=== PATIENT | female | born 1960 | race Caucasian/White ===

== ENCOUNTER → 2016-08-04 | Outpatient (CLI) | payer BC ==
[~2016-08-04] MED LIST: IBUP-103 PO
== END | disposition home or self-care (01) ==
LOC: C.RDSM 16:00
PROVIDERS: ATTEND Physical Medicine & Rehabilitation Sports Medicine
DX: M25.562 Pain in left knee (principal)

== ENCOUNTER → 2016-08-11 | Outpatient (CLI) | payer BC ==
--- NOTE | 2016-08-11 11:34 | DIAGNOSTIC IMAGING REPORT ---
MRI OF THE LEFT KNEE CLINICAL HISTORY: Left knee pain. COMPARISON STUDY: Radiograph of left knee dated 08/04/2016. TECHNIQUE: MRI of the left knee was performed utilizing proton density, T1, and T2-weighted sequences in the axial, sagittal, coronal planes. IV contrast was not administered for this examination. The examination is degraded by motion artifact. FINDINGS: Menisci: There is degenerative tearing seen involving the body and posterior horn of the medial meniscus. The body of the meniscus appears slightly truncated. No flipped fragment is clearly seen. The lateral meniscus appears intact. Ligaments: The anterior and posterior cruciate ligaments are intact. There is fluid seen on both sides of the medial collateral ligament, possibly representing strain. The fibers are intact. The lateral collateral ligament complex is preserved. Extensor mechanism: The extensor mechanism is intact. Hoffa's fat pad is normal in appearance. Articular cartilage and bone: There is only mild degenerative thinning of the articular cartilage in all 3 compartments. No full thickness cartilage loss is seen. There is mild marrow edema seen peripherally within the medial tibial plateau. No fracture is identified. A small calcified fabella is incidentally noted. Joint effusion: None. Soft tissues: The musculature surrounding the knee joint is normal in bulk and signal intensity. IMPRESSION: 1. There is degenerative tearing identified in the body and posterior horn of the medial meniscus. 2. There is fluid seen on both sides of the medial collateral ligament suggesting strain. The fibers of the ligament are intact. 3. The lateral meniscus, the lateral collateral ligament complex, and the cruciate ligaments are intact. 4. Minimal degenerative cartilage loss as above. Reactive marrow edema is present within the peripheral aspect of the medial tibial plateau. Electronically signed by: Sajan Mccarty M.D. 08/11/2016 11:32 AM Dictated Date/Time: 08/11/2016 11:26 AM
== END | disposition home or self-care (01) ==
LOC: C.MRI 10:10
PROVIDERS: ATTEND Physical Medicine & Rehabilitation Sports Medicine
DX: S83.242A Other tear of medial meniscus, current injury, left knee, initial encounter (principal); X58.XXXA Exposure to other specified factors, initial encounter

== ENCOUNTER → 2016-08-13 | Outpatient (CLI) | payer BC ==
[2016-08-13 15:44] LABS: BASO % 0.1 %; BASO ABS # 0.01 K/uL (0-0.2); COMPLETE YES; EOS % 1.3 %; HEMATOCRIT 39.2 % (37-47); IG% 0.1 %; MEAN CELL VOLUME 92.2 fL (80-100); MEAN CORPUSCULAR HEMOGLOBIN 31.3 pg (25-34); MEAN CORPUSCULAR HGB CONC 33.9 g/dl (32-36); MEAN PLATELET VOLUME 9.9 fL (7.4-10.4); NEUT % 57.5 %; PLATELET COUNT 226 K/uL (130-400); RED BLOOD COUNT 4.25 M/uL (4.2-5.4); WHITE BLOOD COUNT 6.94 K/uL (4.8-10.8)
[2016-08-13 16:00] LABS: BLOOD UREA NITROGEN 25 mg/dl (7-18); BUN/CREATININE RATIO 24.5 (10-20); CALCIUM 8.9 mg/dl (8.5-10.1); CARBON DIOXIDE 29 mmol/L (21-32); CHLORIDE 104 mmol/L (98-107); GLUCOSE 96 mg/dl (70-99); POTASSIUM 3.9 mmol/L (3.5-5.1); SODIUM 141 mmol/L (136-145)
== END | disposition home or self-care (01) ==
LOC: C.LAB 14:42
PROVIDERS: ATTEND Physical Medicine & Rehabilitation Sports Medicine
DX: Z01.818 Encounter for other preprocedural examination (principal)

== ENCOUNTER → 2016-08-14 | Day surgery (SDC) | payer BC ==
[2016-08-13 13:33] VITALS: Ht 167.6 cm; Wt 77.3 kg
[~2016-08-14] VITALS: Ht 167.6 cm; Wt 77.3 kg
[~2016-08-14] MED LIST changes: +ATROPINE SULFATE 0.1 MG/ML 5ML SYR IV PRN; +BUPIVACAINE/EPINEPHRINE 0.5% MPF 1:200,000 30 ML VIAL ONE; +CEFAZOLIN 1000MG/55 ML D5W IV SCH; +CEFAZOLIN 2000 MG/60 ML D5W 60 ML IV SCH; +DEXAMETHASONE SOD INJ 4 MG/ML VIAL IV PRN; +DEXAMETHASONE SOD INJ 4 MG/ML VIAL ONE; +EpHEDrine SULFATE INJ 50 MG/ML AMP IV PRN; +FENTANYL CITRATE INJ 50 MCG/1 ML 2 ML VIAL ONE; +HYDROCODONE/ACETAMOPHEN 5/325MG TAB PO PRN; +KETOROLAC TROMETHAMINE 30 MG/ML VIAL IV. PRN; +LABETALOL HCL IV 5 MG/ML 20ML IV PRN; +LACTATED RINGER'S 1000ML 1,000 ML IV SCH; +LIDOCAINE HCL 2% 2 ML VIAL (20MG/ML) ONE; +METOCLOPRAMIDE HCL INJ 5 MG/ML 2 ML VIAL IV PRN; +MIDAZOLAM HCL 1 MG/ML 2ML VIAL ONE; +MoRPHine SULFATE 10 MG/ML CARP/VIAL IV PRN; +MoRPHine SULFATE PF 1 MG/ML 10 ML AMP/VIAL ONE; +ONDANSETRON INJ 2 MG/ML 2 ML VIAL IV PRN; +ONDANSETRON INJ 2 MG/ML 2 ML VIAL ONE; +PHENYLEPHRINE 100MCG/ML 5ML SYR IV PRN; +PROPOFOL IV EMULSION 10 MG/ML 20 ML VIAL IV ONE; +SODIUM CHLORIDE 0.9% 1000ML 1,000 ML IV SCH
--- NOTE | 2016-08-14 12:22 | History & Physical Bridge Note ---
H&P Re-Evaluation Bridge Note: I have examined the patient, reviewed the History & Physical and in the interval since the performance of the History & Physical I have noted the following changes of clinical significance: No changes noted
--- NOTE | 2016-08-14 12:23 | Discharge Instructions ---
Discharge Instructions Visit Reason for Visit: Left Knee Medial Meniscus Tear Discharge Discharge Diagnosis / Problem: same Discharge Goals Goal(s): Decrease discomfort, Improve function Medications Stopped Medications Name(s): nsaids Restart Stopped Medication(s): use scripts as directed Activity Recommendations Activity Limitations: as noted below Lifting Limitations: until after follow-up appointment Exercise/Sports Limitations: until after follow-up appointment May Resume Sexual Activity: when tolerated Shower/Bathe: keep incision dry Driving or Machine Use: resume 1 day after discharge Weightbearing Status: Left weightbearing (as tolerated) Anesthesia . Post Anesthesia Instructions: If you have had General Anesthesia or IV Sedation: * Do not drive today. * Resume driving when surgeon permits. * Do not make important decisions or sign legal documents today. * Call surgeon for: 1. Temperature elevations greater than 101 degrees F. 2. Uncontrollable pain. 3. Excessive bleeding. 4. Persistent nausea and vomiting. 5. Medication intolerance (nausea, vomiting or rash). * For nausea and vomiting use only clear liquids such as: tea, soda, bouillon until nausea subsides, then gradually increase diet as tolerated. * If you have any concerns or questions, call your surgeon's office. If physician is unavailable and it is an emergency, call 911 or go to the nearest emergency room. . Instructions / Follow-Up Instructions / Follow-Up The following are instructions to follow after your Arthroscopic Knee Surgery. ACTIVITY RECOMMENDATIONS: * Minimize activity until your first visit after surgery. * No excessive walking, jogging, sports or laboring. * Return to activity is individualized. Most patients are able to return to every day activities within one month. * Return to sports or intensive labor usually occurs at 2-3 months. * Driving is not permitted until at least your first postoperative visit at a minimum. Please ask your doctor when it is safe to resume driving. If you have an automatic vehicle and your left leg has been operated on, then you may begin driving as soon as you are comfortable and can drive safely. SCHOOL/WORK RECOMMENDATIONS: * You may return to sedentary work or school when you are feeling more comfortable. This is usually 3-7 days after surgery. * Expect increased discomfort with increased activity. Continue to elevate and ice the leg as much as possible. MEDICATIONS: * You will have a prescription for pain medication and an anti-inflammatory medication after surgery. * Use the pain medication for severe pain and the anti-inflammatory for less severe pain. Once the pain medication has run out, try to use the anti-inflammatory medication. If this is not effective, contact the office for assistance. * The pain medication may cause nausea, constipation and drowsiness. You should see how they affect you before driving or similar activity. * The anti-inflammatory medication may cause stomach upset and bleeding. If this occurs let your doctor know immediately . * Take a stool softener like Colace or a laxative like Senokot to prevent constipation. DIET: * Resume previous diet. SPECIAL CARE: ICE: You have the option of an ice cooler, gel packs or ice bags. * If you have an ice cooler, refer to the instructions for that device. The ice cooler may be used continuously. * If you do not have an ice cooler, you will need to use ice bags or gel packs. Do not apply ice directly to the skin. Use a thin dressing or kira shirt between the skin and ice bag. Apply ice for 20-30 minutes and repeat every 2-4 hours. This is especially important for the first 7-10 days after surgery. Once the pain improves, use ice as needed. ELEVATION: * Keep your leg elevated at or above the level of your heart as much as possible. * Expect some increased discomfort and swelling if you are standing for any length of time. * When lying down, avoid placing anything under your knee. Rather, prop your leg up by placing several pillows under your heel or calf. DRESSING: * Your dressing will be changed at your first therapy appointment approximately 4-5 days after surgery. Band-aids, tape strips or gauze may be applied. You may then change your dressing daily. * Reapply dressing followed by the Quique wrap or Tubi-brick grader stockinet and EBIce cooling pad (if chosen). * Always wash your hands prior to touching the incision area. * Once the stitches are removed, you may leave the wound open to air or cover with an Quique wrap or Tubi-brick grader stockinet. * If you have been given a white elastic stocking (DENNIS hose), wear as much as possible for the first 1-3 weeks depending on swelling. * Expect some bloody drainage for the first few days after surgery. * Leave the tape strips, if present, in place for 5-7 days. * Band-aids and gauze may be changed daily. CRUTCHES: * You will need to use crutches after surgery. * You may gradually progress to full weight bearing as tolerated and wean off the crutches unless otherwise advised. * Your therapist can provide assistance weaning off crutches. * Patients who have a microfracture done may need to be toe-touch weight- bearing for 4-6 weeks. BATHING: * You may shower or sponge-bathe immediately after surgery. * The dressing will need to be covered with a plastic bag or plastic wrap until the dressing is changed on the fourth or fifth day after surgery. * Once the dressing has been changed on the fourth or fifth day after surgery, you may shower and get the incision wet. * Wash with regular soap and water. * Do not bathe (submerge the incision), soak, swim or use a hot tub until the incision is completely healed over with normal skin and the doctor has given the OK to proceed. * There is no need to apply any ointments, powders or salves to your incision. * Do not apply alcohol or hydrogen peroxide directly to the incision. * Diluted peroxide (50:50 mixture with sterile saline) may be used to clean dried blood from around the incision area. BRACE: * Bracing is generally not needed after routine Arthroscopic Knee surgery. THERAPY: * You will begin therapy four or five days after surgery. * Organized therapy with the therapist is important for the first 4-6 weeks after surgery. During that time you will attend therapy 1-3 times per week. * You will also need to do daily exercises for range of motion and strength as instructed. PROBLEMS/QUESTIONS: * If you have any problems such as severe pain, numbness, tingling or high fevers or if you have any questions, please contact the office at [phone]. * It is not uncommon to have some numbness and tingling after the surgery especially if you have had a nerve block done. This should gradually improve over the first 1- 2 days. If this persists longer or worsens please contact the office. FOLLOW UP VISIT: * If not already scheduled, please call the office at to schedule a follow-up appointment for 10 days, 6 weeks and 3 months after surgery. Diet Recommendations Recommended Home Diet: resume previous diet Procedures Procedures Performed: ascopy left knee Pending Studies Studies pending at discharge: no Medical Emergencies . Who to Call and When: Medical Emergencies: If at any time you feel your situation is an emergency, please call 911 immediately. . Non-Emergent Contact Non-Emergency issues call your: Specialist Call Non-Emergent contact if: temperature is above 101.5 . . "Provider Documentation" section prepared by Christopher Alcocer.
--- NOTE | 2016-08-14 12:57 | [facility] Post Operative Brief Note ---
Immediate Operative Summary Operative Date Aug 14, 2016. Pre-Operative Diagnosis Left Knee Medial Meniscus Tear Post-Operative Diagnosis same Procedure(s) Performed Left Knee Arthroscopy, Partial Medial Meniscectomy, Chondroplasty Lateral Femoral Condyle Surgeon Dr. Yuli Alcocer Tallier Surgeon(s) Molina Adame PA-C Estimated Blood Loss trace Findings see op note Fluids (cc crystalloids) 500cc Specimens none Drains none Anesthesia LMA Complication(s) None Disposition Recovery Room / PACU
[2016-08-14] MEDS: FENTANYL CITRATE INJ 50 MCG/1 ML 2 ML VIAL IV PRN ×2 (13:15→13:25)
--- NOTE | 2016-08-14 13:24 | OPERATIVE REPORT ---
DATE OF OPERATION: 08/14/2016 SURGEON: Christopher Alcocer MD AQUATIC PHYSIOTHERAPIST: Molina Adame PA-C No resident or fellow available. PREOPERATIVE DIAGNOSIS: Medial meniscus tear. POSTOPERATIVE DIAGNOSES: 1. Medial meniscus tear. 2. Synovitis. 3. 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 OPERATIONS PERFORMED: 1. Exam under anesthesia. 2. Diagnostic arthroscopy. 3. Arthroscopic partial medial meniscectomy. 4. Arthroscopic chondroplasty of lateral femoral condyle with incidental trimming of the lateral meniscus and synovectomy anteriorly. PERIOPERATIVE SITUATION: Medically cleared female with intractable knee pain following a twisting injury. Physical exam, x-ray and MRI scan consistent with some early degenerative disease on the medial meniscus tear. At this point in time, she wants to proceed with surgical treatment, complaining of locking pain and intermittent sharp pain. DESCRIPTION OF PROCEDURE: The patient appropriately identified, site verified, consent verified, and 2 grams of Ancef confirmed as being given. The left lower extremity was examined revealing no ligamentous instability. It was then sterilely injected with 20 mL of 0.5% Marcaine with epinephrine and 5 mg of Duramorph for postop pain control. The knee was then prepped and draped in the usual routine fashion. Inframedial and infralateral portals marked and injected with 3.5 mL of 0.5% Marcaine with epinephrine. Lateral portal was utilized and then, the scope inserted and then looking medially, the portal was localized with a needle to get a good direction to the posterior condyle and the portal was made. The anterior synovectomy was completed at the end of the procedure. The lateral compartment had an articular surface lesion with some fraying of the lateral femoral condyle, approximately 0.5 x 0.75 cm area, which was debrided to a stable base. There was no exposed bone. There was a free edge fraying of the lateral meniscus, which was incidentally debrided as well as the synovitis in this area. The ACL and PCL were normal. The medial compartment had relatively healthy articular surfaces of the medial condyle and the medial tibial plateau. The medial meniscus had an extensive degenerative tear with an early root type tear, but the posterior root was intact. This was trimmed to a stable balanced contoured rim. There was an extensive horizontal cleavage into the meniscus. Once it was trimmed it fell into a cavern and the internal architecture of the meniscus was completely disrupted. This resulted in about a 50% partial medial meniscectomy of the posterior half of the meniscus. This was then trimmed to a stable balanced contoured rim with the shaver. Probing revealed no instability and no articular lesions. Some minor synovitis was removed from the patellofemoral joint. The knee was then copiously irrigated and inspected and all remaining debris removed and all instruments and fluid removed. The portals were then closed with horizontal mattress 3-0 nylon suture in simple mattress suture on the medial side and horizontal mattress on the lateral side. The wound was then dressed with Xeroform, 4 x 4 gauze, sterile Webril, ABD pads, above knee DENNIS stocking. Overall prognosis for this knee is a little guarded based on the lateral femoral articular disease. At this point in time, the patient will be weightbearing to tolerance and could be started on Lovenox tomorrow for 2 weeks and then go to aspirin 325 b.i.d. for another 2 weeks. She will be doing some plane travel and this was discussed with her in detail. She will start with Lovenox tomorrow. She will follow up with us in the office in 2 weeks for suture removal. Start PT on Wednesday. Keep dressing in place until Wednesday. I attest to the content of the Intraoperative Record and any orders documented therein. Any exceptions are noted below. WALLY
--- NOTE | 2016-08-14 13:30 | OPERATIVE REPORT ---
DATE OF OPERATION: 08/14/2016 PREOPERATIVE DIAGNOSIS: Left knee medial meniscal tear. POSTOPERATIVE DIAGNOSIS: Left knee same with chondral injury of the lateral femoral condyle. PROCEDURE: Left knee arthroscopy, partial medial meniscectomy, and chondroplasty of the lateral femoral condyle. SURGEON: Dr. Alcocer. SATELLITE MANAGER: Molina Adame PA-C. HISTORY OF PRESENT ILLNESS: This 56-year-old white female presented to the office with complaints of left knee pain that had been ongoing for a few months. Pain was worse with any physical activity. Pain was affecting her ADLs. She elected to proceed with surgical intervention after being educated about potential risks and outcomes. Preoperative x-ray and MRI were obtained. OPERATION: The patient was taken to the operating room where she was administered general anesthetic. She was prepped and draped in the usual sterile fashion. Please see Dr. Alcocer's operative report for specifics of the procedure. I was present for the entire case from initial patient positioning through final wound closure. Assistance was provided in patient positioning, arthroscopy, and final wound closure. The patient was taken to the recovery room in satisfactory condition. I attest to the content of the Intraoperative Record and any orders documented therein. Any exceptio ns are noted below.
--- NOTE | 2016-08-14 13:48 | Anesthesia Progress Nt - [facility] ---
Anesthesia Post Op Note Date & Time Aug 14, 2016 at 13:48 Vital Signs Pain Intensity: 4 Vital Signs Past 12 Hours Date Time Temp Pulse Resp B/P Pulse Ox O2 Delivery O2 Flow Rate FiO2 08/14/16 13:44 54 21 08/14/16 13:44 52 21 98 08/14/16 13:43 129/69 08/14/16 13:43 36.7 08/14/16 13:39 52 14 97 08/14/16 13:39 53 14 08/14/16 13:38 130/69 08/14/16 13:34 45 12 08/14/16 13:34 44 12 120/65 100 08/14/16 13:30 135/74 08/14/16 13:29 55 15 08/14/16 13:29 55 15 100 08/14/16 13:24 54 9 08/14/16 13:24 54 9 100 08/14/16 13:23 138/81 08/14/16 13:19 47 10 08/14/16 13:19 47 10 100 08/14/16 13:18 146/77 08/14/16 13:14 55 13 100 08/14/16 13:14 55 13 08/14/16 13:13 146/80 08/14/16 13:09 58 12 100 08/14/16 13:09 59 12 08/14/16 13:08 133/80 08/14/16 13:04 57 13 08/14/16 13:04 57 13 100 08/14/16 13:03 36.2 61 16 138/83 97 Diffusion Mask 6 08/14/16 11:52 36.2 61 16 115/62 95 Room Air Notes Mental Status: alert / awake / arousable, participated in evaluation Pt Amnestic to Procedure: Yes Nausea / Vomiting: adequately controlled Pain: adequately controlled Airway Patency, RR, SpO2: stable & adequate BP & HR: stable & adequate Hydration State: stable & adequate Anesthetic Complications: no major complications apparent
[2016-08-14 14:10] VITALS: TEMP 36.4
[2016-08-14 14:52] VITALS: BP 114/68; PULSE 56; O2SAT 98
== END | disposition home or self-care (01) ==
LOC: X.SURG 11:42
PROVIDERS: ATTEND Physical Medicine & Rehabilitation Sports Medicine
DX: M23.232 Derangement of other medial meniscus due to old tear or injury, left knee (principal); M65.9 Synovitis and tenosynovitis, unspecified

== ENCOUNTER → 2017-04-27 | Outpatient (CLI) | payer BC ==
--- NOTE | 2017-05-03 14:55 | MAMMOGRAPHY REPORT ---
THIS REPORT HAS BEEN AMENDED. BILATERAL DIGITAL SCREENING MAMMOGRAM WITH CAD: 04/27/2017 CLINICAL HISTORY: Routine screening. Patient has no complaints. TECHNIQUE: Bilateral CC and MLO views were obtained. Current study was also evaluated with a Compute r Aided Detection (CAD) system. COMPARISON: No prior exams were available for comparison. BREAST COMPOSITION: There are scattered areas of fibroglandular density in both breasts. FINDINGS: There is a lobulated 15 mm oval mass with associated ribbon-shaped biopsy marker clip in t he 6:00 left breast. Presumably this represents a previously biopsied mass which yielded benign path ology. However, comparison to prior outside exams is recommended to assess stability. A 4 mm nodula r asymmetry is seen in the medial anterior right breast on the CC view, for which comparison to prior outside exams is needed to assess stability. If the outside exams are not obtained in a timely rivas er, additional spot compression tomosynthesis views and possible ultrasound may be needed. There are scattered benign-appearing round microcalcifications in the left breast. No other suspicio us mass, architectural distortion or cluster of microcalcifications is seen. IMPRESSION: ACR BI-RADS CATEGORY 0: INCOMPLETE EVALUATION: NEED ADDITIONAL IMAGING EVALUATION The lobulated 15 mm mass with associated biopsy marker clip in the 6:00 left breast and 4 mm nodular asymmetry in the medial right breast in comparison to prior outside exams to assess stability. If th e outside mammograms and/or ultrasounds are not obtainable timely manner, additional spot compression tomosynthesis views and possible ultrasound may be needed. The patient will be called to schedule an appointment. Approximately 10% of breast cancers are not detected with mammography. A negative mammographic report should not delay biopsy if a clinically suggestive mass is present. Linh Awad M.D. ay/:05/03/2017 08:36:12 Rug Renovator: Millicent CALERO)([place]), [facility] letter sent: Need Priors 0 BI-RADS Code: ACR BI-RADS Category 0: Incomplete Evaluation: Need Additional Imaging Evaluation AMENDMENT: 05/05/2017 Linh Awad M.D. A prior outside mammogram dated 11/29/2012 from [facility] became available for review. Th e circumscribed 15 mm oval mass and associated biopsy marker clip in the left breast is stable compar ed to the 2013 mammogram as is the small 4 mm nodular asymmetry in the medial anterior right breast. No new suspicious masses, areas of distortion, calcifications or asymmetries are seen bilaterally. Overall, no significant interval change, would recommend routine screening mammography in one year. Amended BI-RADS: ACR BI-RADS Category 2: Benign letter sent: Normal 07/06
== END | disposition home or self-care (01) ==
LOC: C.MAMM 12:51
PROVIDERS: ATTEND Family Medicine
DX: Z12.31 Encounter for screening mammogram for malignant neoplasm of breast (principal); N63.42 Unspecified lump in left breast, subareolar; N64.89 Other specified disorders of breast

== ENCOUNTER 2020-12-07 16:15 | Observation (INO) ==
[2020-12-07] MEDS ORDERED: SODIUM CHLORIDE 0.9% 1000ML 2,000 ML IV ONE (17:46)
[2020-12-07 18:10] LABS: Basophils # (auto) 0.01 K/uL (0-0.2); Basophils % (auto) 0.1 %; Eosinophils # (auto) 0.02 K/uL (0-0.5); Eosinophils % (auto) 0.2 %; Hematocrit (blood only) 39.8 % (37-47); Hemoglobin 13.4 g/dL (12.0-16.0); Immature Granulocytes # (auto) 0.01 K/uL (0.00-0.02); Immature Granulocytes % (auto) 0.1 %; Lymphocytes # (auto) 1.37 K/uL (1.2-3.4); Lymphocytes % (auto) 11.4 %; Mean Corpuscular Hgb Conc 33.7 g/dL (32-36); Mean Platelet Volume 9.6 fL (7.4-10.4); Monocytes # (auto) 0.29 K/uL (0.11-0.59); Monocytes % (auto) 2.4 %; Neutrophils # (auto) 10.31 K/uL (1.4-6.5); Neutrophils % (auto) 85.8 %; Platelet Count 274 K/uL (130-400); RDW Coefficient of Variation 12.7 % (11.5-14.5); RDW Standard Deviation 43.6 fL (36.4-46.3); Red Blood Count 4.19 M/uL (4.2-5.4); White Blood Count 12.01 K/uL (4.8-10.8)
[2020-12-07 18:36] LABS: Albumin Globulin Ratio 1.1 (0.9-2); BUN Creatinine Ratio 18.8 (10-20); Bilirubin,Total 0.4 mg/dl (0.2-1); Calcium 9.4 mg/dl (8.5-10.1); Creatinine Clr Calc Pharmacy 80.9 ml/min; Est GFR (African American) 93.6 ml/min; Est GFR (Non-African American) 80.8 ml/min; Globulin 3.7 gm/dl (2.5-4.0); Total Protein 7.7 gm/dl (6.4-8.2)
[2020-12-07 18:39] LABS: Appearance Urine Cloudy (Clear); Bacteria Urine Automated Negative (Negative); Bilirubin Urine Negative (Negative); Blood Urine 3+ (Negative); Color Urine Yellow; Glucose Urine UA Negative (Negative); Ketones Urine Negative (Negative); Leukocyte Esterase Urine 1+ (Negative); Nitrite Urine Negative (Negative); Protein Urine 2+ (Negative); Specific Gravity Urine 1.018 (1.000-1.030); Urobilinogen Urine Negative (Negative)
[2020-12-07] MEDS ORDERED: OPTIRAY 320 100ml IV ONE (19:20)
--- NOTE | 2020-12-07 19:21 | Emergency Department Note ---
Impression & Plan Pyelonephritis, Nephrolithiasis, Abnormal urine, Abdominal pain ED Provider Note NAME: GERALD FERNANDEZ AGE: 60 SEX: F : 1960 ARRIVES VIA: Walk-In INFORMANT: Patient ED PROVIDER(S): Deacon Gomez DO CHIEF COMPLAINT: Abdominal pain HPI: Patient is a 60-year-old female who presents to the ER for estrada right- sided abdominal pain. Pain is then 8 out of 10. Associated with 2-3 episodes of diarrhea. She did have some nausea but that has abated. Denies any dysuria, urgency, or frequency. No other exacerbating or remitting factors. She never had this before. No previous abdominal surgeries. ROS: See above HPI for pertinent positives & negatives. A total of 10 systems reviewed and were otherwise negative. PAST MEDICAL HISTORY:See Below PAST SURGICAL HISTORY:See Below FAMILY HISTORY:See Below SOCIAL HISTORY:See Below HOME MEDICATIONS:See Below ALLERGIES:See Below VITALS:See Below PHYSICAL EXAMINATION: GENERAL: Sitting up in bed, alert, well appearing, well nourished, no distress, non-toxic EYE EXAM: normal conjunctiva. OROPHARYNX: no exudate, no erythema, lips, buccal mucosa, and tongue normal and mucous membranes are moist NECK: supple, no nuchal rigidity, no adenopathy, non-tender LUNGS: Clear to auscultation. Normal chest wall mechanics HEART: no murmurs, S1 normal and S2 normal ABDOMEN: abdomen soft, minimal tenderness in mid right abdomen, normo-active bowel sounds, no masses, no rebound or guarding. UPPER EXTREMITIES: upper extremities are grossly normal. LOWER EXTREMITIES: No pitting edema. NEURO EXAM: Normal sensorium, cranial nerves II-XII grossly intact, normal speech, no gross weakness of arms, no gross weakness of legs. MEDICAL DECISION MAKING: Patient is a 60-year-old female who presents the ER for right-sided abdominal pain. IV was established blood was obtained. Labs show leukocytosis of 12,000. No significant anemia. BMP with LFTs bilirubin and lipase was unremarkable. U A with protein, blood, leuks and budding yeast. Only 5-[address] shows pyelonephritis. Discussed with Dr. Su. Recommended Pseudomonas coverage as well as yeast coverage and admission. Patient had already been given IV Rocephin for the pseudomonal coverage cefepime was added. Patient was given fluconazole. Patient was updated bedside discussed with hospitalist admitted for further work-up after IV fluids antibiotics and morphine. Triage Nursing notes reviewed. Limited review of prior medical records performed Vital Signs: reviewed and remarkable for no significant abnormalities Differential diagnosis: Differential diagnoses includes but is not limited to gastritis, peptic ulcer disease, GERD, gallbladder disease, pancreatitis, small bowel obstruction, acute coronary syndrome, pericarditis, ischemic bowel, irritable bowel disease, irritable bowel syndrome, appendicitis, diverticulitis, malignancy, hernia, urinary tract infection, torsion, /ectopic (if female), perforation, trauma, infectious. ER treatment provided: See below Diagnostics interpreted by me: ECG: none Cardiac Monitoring: An order was placed for continuous cardiac monitoring. The monitor shows a rate of 68 with sinus rhythm. Laboratory studies: As stated above and show below. Imaging studies: CT abdomen pelvis shows pyelonephritis Consultation(s): Discussed with Dr. Su recommend admission Discussed with the hospitalist for further evaluation Procedures: none Critical Care: None Past Med/Surg History Social History Smoking Status: Never smoker Preferred Language: Mongolian Feels Safe at Home: Yes Allergies Allergies Allergy/AdvReac Type Severity Reaction Status Date / Time No Known Drug Allergies Allergy Unknown . Verified 12/07/20 18:08 Home Meds Home Medications Medication Instructions Recorded Confirmed No Known Home Medications 12/07/20 12/07/20 Results & Data (ED) Vital Signs Vital Signs - 24 hr 12/07/20 16:25 12/07/20 18:13 12/07/20 19:27 Temperature 36.1 C L Temperature Source Temporal Artery Scan Pulse Rate 63 Pulse Rate [Right Finger] 68 76 Pulse Rate from SpO2 Sensor Respiratory Rate 20 20 20 Respiratory Effort / Characteristics Non-Labored Spontaneous Non-Labored Non-Labored Spontaneous Respiratory Depth Normal Normal Normal Respiratory Pattern Regular Regular Blood Pressure 154/80 H Blood Pressure [Right Arm] 128/67 151/74 H Blood Pressure Mean 104 Blood Pressure Mean [Right Arm] 87 99 Pulse Oximetry 98 98 96 Oxygen Delivery Method Room Air Room Air Room Air Sepsis Recent Fever Within 48 Hours No Sepsis New/Unexplained Change in Mental Status No Sepsis Action Taken by Nursing No Action Required 12/07/20 21:00 12/07/20 21:31 Temperature Temperature Source Pulse Rate 87 69 Pulse Rate [Right Finger] 76 Pulse Rate from SpO2 Sensor 87 69 Respiratory Rate 24 22 Respiratory Effort / Characteristics Respiratory Depth Respiratory Pattern Blood Pressure 147/77 H 147/77 H Blood Pressure [Right Arm] 147/77 H Blood Pressure Mean 100 100 Blood Pressure Mean [Right Arm] 100 Pulse Oximetry 97 98 Oxygen Delivery Method Sepsis Recent Fever Within 48 Hours Sepsis New/Unexplained Change in Mental Status Sepsis Action Taken by Nursing Laboratory Data Result diagrams: 12/07/20 17:57 12/07/20 19:06 Lab Results 12/07/20 12/07/20 12/07/20 Range/Units 17:57 17:57 18:25 WBC 12.01 H (4.8-10.8) K/uL RBC 4.19 L (4.2-5.4) M/uL Hgb 13.4 (12.0-16.0) g/dL Hct 39.8 (37-47) % MCV 95.0 (80-100) fL MCH 32.0 (25-34) pg MCHC 33.7 (32-36) g/dL RDW Std Deviation 43.6 (36.4-46.3) fL RDW Coeff of Tiffany 12.7 (11.5-14.5) % Plt Count 274 (130-400) K/uL MPV 9.6 (7.4-10.4) fL Immature Gran % (Auto) 0.1 % Neut % (Auto) 85.8 % Lymph % (Auto) 11.4 % [place] % (Auto) 2.4 % Eos % (Auto) 0.2 % Baso % (Auto) 0.1 % Neut # (Auto) 10.31 H (1.4-6.5) K/uL Lymph # (Auto) 1.37 (1.2-3.4) K/uL [place] # (Auto) 0.29 (0.11-0.59) K/uL Eos # (Auto) 0.02 (0-0.5) K/uL Baso # (Auto) 0.01 (0-0.2) K/uL Immature Gran # (Auto) 0.01 (0.00-0.02) K/uL Sodium 138 (136-145) mmol/L Potassium (3.5-5.1) mmol/L Chloride 105 (98-107) mmol/L Carbon Dioxide 27 (21-32) mmol/L Anion Gap 6.0 (3-11) BUN 15 (7-18) mg/dl Creatinine 0.79 (0.6-1.2) mg/dl Est Cr Clr Drug Dosing 80.9 ml/min Est GFR ( Amer) 93.6 ml/min Est GFR (Non-Af Amer) 80.8 ml/min BUN/Creatinine Ratio 18.8 (10-20) Glucose 104 H (70-99) mg/dl Calcium 9.4 (8.5-10.1) mg/dl Total Bilirubin 0.4 (0.2-1) mg/dl AST (15-37) U/L ALT 36 (12-78) U/L Alkaline Phosphatase 130 H (45-117) U/L Total Protein 7.7 (6.4-8.2) gm/dl Albumin 4.0 (3.4-5.0) gm/dl Globulin 3.7 (2.5-4.0) gm/dl Albumin/Globulin Ratio 1.1 (0.9-2) Lipase 259 (73-393) U/L Urine Color Yellow Urine Appearance Cloudy A (Clear) Urine pH 5.0 (4.5-7.5) Ur Specific [place] 1.018 (1.000-1.030) Urine Protein 2+ H (Negative) Urine Glucose (UA) Negative (Negative) Urine Ketones Negative (Negative) Urine Blood 3+ H (Negative) Urine Nitrite Negative (Negative) Urine Bilirubin Negative (Negative) Urine Urobilinogen Negative (Negative) Ur Leukocyte Esterase 1+ H (Negative) Urine WBC (Auto) 1-5 (0-5) /hpf Urine RBC (Auto) 10-30 H (0-4) /hpf U Hyaline Cast (Auto) 1-5 (0-5) /lpf U Epithel Cells (Auto) 5-10 H (0-5) /lpf Urine Bacteria (Auto) Negative (Negative) Urine Yeast Budding A (None Prsent) COVID-19 Eval Order 12/07/20 12/07/20 Range/Units 19:06 21:02 WBC (4.8-10.8) K/uL RBC (4.2-5.4) M/uL Hgb (12.0-16.0) g/dL Hct (37-47) % MCV (80-100) fL MCH (25-34) pg MCHC (32-36) g/dL RDW Std Deviation (36.4-46.3) fL RDW Coeff of Tiffany (11.5-14.5) % Plt Count (130-400) K/uL MPV (7.4-10.4) fL Immature Gran % (Auto) % Neut % (Auto) % Lymph % (Auto) % [place] % (Auto) % Eos % (Auto) % Baso % (Auto) % Neut # (Auto) (1.4-6.5) K/uL Lymph # (Auto) (1.2-3.4) K/uL [place] # (Auto) (0.11-0.59) K/uL Eos # (Auto) (0-0.5) K/uL Baso # (Auto) (0-0.2) K/uL Immature Gran # (Auto) (0.00-0.02) K/uL Sodium (136-145) mmol/L Potassium 4.0 (3.5-5.1) mmol/L Chloride (98-107) mmol/L Carbon Dioxide (21-32) mmol/L Anion Gap (3-11) BUN (7-18) mg/dl Creatinine (0.6-1.2) mg/dl Est Cr Clr Drug Dosing ml/min Est GFR ( Amer) ml/min Est GFR (Non-Af Amer) ml/min BUN/Creatinine Ratio (10-20) Glucose (70-99) mg/dl Calcium (8.5-10.1) mg/dl Total Bilirubin (0.2-1) mg/dl AST 12 L (15-37) U/L ALT (12-78) U/L Alkaline Phosphatase (45-117) U/L Total Protein (6.4-8.2) gm/dl Albumin (3.4-5.0) gm/dl Globulin (2.5-4.0) gm/dl Albumin/Globulin Ratio (0.9-2) Lipase (73-393) U/L Urine Color Urine Appearance (Clear) Urine pH (4.5-7.5) Ur Specific [place] (1.000-1.030) Urine Protein (Negative) Urine Glucose (UA) (Negative) Urine Ketones (Negative) Urine Blood (Negative) Urine Nitrite (Negative) Urine Bilirubin (Negative) Urine Urobilinogen (Negative) Ur Leukocyte Esterase (Negative) Urine WBC (Auto) (0-5) /hpf Urine RBC (Auto) (0-4) /hpf U Hyaline Cast (Auto) (0-5) /lpf U Epithel Cells (Auto) (0-5) /lpf Urine Bacteria (Auto) (Negative) Urine Yeast (None Prsent) COVID-19 Eval Order Covid19 at [facility] Administered Medications Discontinued Medications Fluconazole (Fluconazole 100 Mg Tab) 200 mg PO NOW STA Stop: 12/07/20 20:09 Last Admin: 12/07/20 20:49 Dose: 200 mg Documented by: [id number] Sodium Chloride (Nss 1000ml) 2,000 mls @ 999 mls/hr IV .Q2H1M ONE Stop: 12/07/20 19:46 Last Infusion: 12/07/20 20:31 Dose: 0 mls/hr Documented by: [id number] Admin: 12/07/20 18:22 Dose: 999 mls/hr Documented by: [id number] Ceftriaxone Sodium (Rocephin) 1,000 mg in 50 mls @ 100 mls/hr IV NOW STA Stop: 12/07/20 20:15 Last Infusion: 12/07/20 20:31 Dose: 0 mls/hr Documented by: [id number] Admin: 12/07/20 19:56 Dose: 100 mls/hr Documented by: [id number] Cefepime HCl 2,000 mg/ Syringe 20 mls @ 5 mls/min IV NOW STA; Protocol Stop: 12/07/20 20:04 Last Admin: 12/07/20 20:49 Dose: 5 mls/min Documented by: [id number] Ioversol (Optiray 320 100ml) 94 ml IV ONCE ONE Stop: 12/07/20 19:21 Last Admin: 12/07/20 19:20 Dose: 94 ml Documented by: [id number] Morphine Sulfate (Morphine Sulfate 4 Mg/Ml 1 Ml Carp\Vial) 4 mg IV NOW STA Stop: 12/07/20 20:02 Last Admin: 12/07/20 20:56 Dose: 4 mg Documented by: [id number] Imaging Data Radiologist's Impression: Abdomen/Pelvis CT 12/07/20 17:[address] WITH IV CONTRAST CT DOSE: 441.77 mGy.cm HISTORY: r mid abd pain TECHNIQUE: Multiaxial CT images of the abdomen and pelvis were performed following the use of intravenous contrast. A dose lowering technique was utilized adhering to the principles of ALARA. COMPARISON STUDY: None. FINDINGS: The lung bases are clear. No pneumoperitoneum. No pneumatosis. No suspicious lytic or blastic osseous lesions. The liver is mildly enlarged. No hepatic or splenic masses. Normal gallbladder. The pancreas and adrenal glands are unremarkable. Normal left kidney. A 6 mm hypodense lesion within the lower pole of the right kidney is technically too small to characterize but statistically represents a cyst. There is a 1.2 cm nonobstructing stone within the right renal pelvis. There is mild urothelial thickening within the right renal collecting system, right renal pelvis, and majority of the right ureter. No ureteral stones identified. Mild inflammatory change surrounding the right renal pelvis. The bladder is unremarkable. There is a 5.5 cm heterogeneous enhancing mass within the uterus likely representing a fibroid. There are few small right ovarian cyst. Normal left ovary. No pelvic free fluid. Normal caliber abdominal aorta. There is a left retroaortic renal vein. No retroperitoneal lymphadenopathy. The main portal vein is patent. No bowel wall thickening or obstruction. Normal appendix. IMPRESSION: 1. There is a 1.2 cm nonobstructing stone within the right renal pelvis. There is mild urothelial thickening within the right renal collecting system, right renal pelvis, and majority of the right ureter. Mild inflammatory change surrounding the right renal pelvis. Findings suggest a right-sided pyelitis/pyelonephritis. Recommend correlation with urinalysis. 2. No ureteral stones. No hydronephrosis. 3. No bowel wall thickening or obstruction. 4. Normal appendix. 5. A 5.5 cm heterogeneously enhancing mass within the uterine fundus. This favors a uterine fibroid. 6. Hepatomegaly. ACT 112: Negative or not required by law. Electronically signed by: Emiliano Gong M.D. 12/07/2020 7:39 PM Discharge Plan Visit Data Chief Complaint: Abdominal Pain Stated Complaint: right side abdomal pain ED Provider: Deacon Gomez Discharge Problem: Pyelonephritis, Nephrolithiasis, Abnormal urine, Abdominal pain Forms Stand Alone Forms: [facility] Prescriptions Prescriptions: No Action No Known Home Medications RF: 0 Discharge Problem: Abdominal pain Qualifiers: Abdominal location: unspecified location Qualified Code(s): R10.9 - Unspecified abdominal pain
--- NOTE | 2020-12-07 19:40 | CT Scan Report ---
ABDOMEN AND PELVIS CT WITH IV CONTRAST CT DOSE: 441.77 mGy.cm HISTORY: r mid abd pain TECHNIQUE: Multiaxial CT images of the abdomen and pelvis were performed following the use of intrave nous contrast. A dose lowering technique was utilized adhering to the principles of ALARA. COMPARISON STUDY: None. FINDINGS: The lung bases are clear. No pneumoperitoneum. No pneumatosis. No suspicious lytic or blast ic osseous lesions. The liver is mildly enlarged. No hepatic or splenic masses. Normal gallbladder. T he pancreas and adrenal glands are unremarkable. Normal left kidney. A 6 mm hypodense lesion within t he lower pole of the right kidney is technically too small to characterize but statistically represen ts a cyst. There is a 1.2 cm nonobstructing stone within the right renal pelvis. There is mild urothe lial thickening within the right renal collecting system, right renal pelvis, and majority of the rig ht ureter. No ureteral stones identified. Mild inflammatory change surrounding the right renal pelvis . The bladder is unremarkable. There is a 5.5 cm heterogeneous enhancing mass within the uterus likel y representing a fibroid. There are few small right ovarian cyst. Normal left ovary. No pelvic free f luid. Normal caliber abdominal aorta. There is a left retroaortic renal vein. No retroperitoneal lymp hadenopathy. The main portal vein is patent. No bowel wall thickening or obstruction. Normal appendix . IMPRESSION: 1. There is a 1.2 cm nonobstructing stone within the right renal pelvis. There is mild urothelial thi ckening within the right renal collecting system, right renal pelvis, and majority of the right urete r. Mild inflammatory change surrounding the right renal pelvis. Findings suggest a right-sided pyelit is/pyelonephritis. Recommend correlation with urinalysis. 2. No ureteral stones. No hydronephrosis. 3. No bowel wall thickening or obstruction. 4. Normal appendix. 5. A 5.5 cm heterogeneously enhancing mass within the uterine fundus. This favors a uterine fibroid. 6. Hepatomegaly. ACT 112: Negative or not required by law. Electronically signed by: Emiliano Gong M.D. 12/07/2020 7:39 PM
[2020-12-07] MEDS ORDERED: FLUCONAZOLE SUSP 200 MG/5 ML UDP PO STA (19:46)
[2020-12-07] MEDS ORDERED: cefTRIAXone SODIUM 1,000 MG/50 ML BAG IV STA (19:46)
[2020-12-07] MEDS ORDERED: MoRPHine SULFATE 4 MG/ML 1 ML CARP\\VIAL IV STA (20:01)
[2020-12-07] MEDS ORDERED: CEFEPIME 2,000 MG in SYRINGE 0 ML IV STA (20:01)
[2020-12-07] MEDS ORDERED: FLUCONAZOLE 100 MG TAB PO STA (20:08)
--- NOTE | 2020-12-07 20:52 | History & Physical Report ---
Date of Service December 07, 2020 Assessment & Plan (1) Pyelonephritis: Appreciate Urology input - Zosyn 3.375 mg IV q8 - Fluconazole 200mg PO daily - Re-send urine in morning (2) Nephrolithiasis: Pain control - 2 MG Morphine IV q2prn - Toradol 15mg IV q6 PRN - Oxy IR 5mg q6HR PRN - Tylenol q6 PRN NPO after midnight (3) Abnormal urine: As per HPI - resend urine in morning History of Present Illness Primary Care Provider: Colleen Jarrell, DO 60 YOF with no significant medical history and on no medications at home. Patient thinks maybe last week she may have had some discomfort in her right back, but today around 1 PM she got a sharp pain in her right side that has been waxing and waning and sharp in nature and about 6-8. This was associated with some nausea without vomiting and 2 episodes of diarrhea. She denies fevers or chills. She is comfortable at this time. The patient had a CT scan of the abdomen with 1.2mc nonobstructing stone, with pyelonephritis. Her UA did show budding yeast without any other significance. Dr. Gomez notified Dr. Su of urology with recommendations to admit. She will be covered for her UTI with Zosyn for Pseudomonal coverage as well and Fluconazole 200 mg daily. We will repeat her UA in morning. She denies any symptoms of vaginal irritation, dr caio, or any discharge on underwear or pads. She is not toxic in appearing or evidence of hypoperfusion on her labs. Not immunocompromised by review. Allergies Allergy/AdvReac Type Severity Reaction Status Date / Time No Known Drug Allergies Allergy Unknown . 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 Beliefs That Will Affect Care: None Current Living Situation: Alone Other Information That Helps Us Care for You: No Feels Safe at Home: Yes Safety Concerns: Feels Safe At This Time Assistive Devices: None Review of Systems Review of Systems: REVIEW OF SYSTEMS: Constitutional: No fever, sweats or chills Eyes: No diplopia, no worsening or blurred vision ENT: normal hearing, no trouble swallowing Respiratory: No cough, sputum, dyspnea at rest or on exertion Cardiovascular: No chest pain, tightness or palpitations Abdomen: pain per HPI, nausea, vomiting, diarrhea or constipation Musculoskeletal: No joint pain, calf pain, swelling Neurologic: No weakness, numbness/tingling, or balance problems Psychiatric: No anxiety or depression Skin: No rash or itch Physical Exam Physical Exam: PHYSICAL EXAM: General: awake, alert, no apparent distress Head: Normocephalic, atraumatic ENT: PERRL, EOMI, no pharyngeal exudate, mucous membranes moist Neuro: AAO x 3, speech clear and appropriate, strength intact bilaterally 5/5, sensation intact and equal all extremities and dermatomes, no pronator drift Chest: equal rise and fall of the chest, no accessory muscle use, no heaves or thrills, Clear to auscultation, on room air, Cardiac: Regular rate and rhythm, telemetry reviewed, skin warm dry, cap refill <3 seconds, peripheral pulses +2 no JVD, no murmur, no edema GI: NABS x 4 quadrants, soft, nontender to palpation, no rebound, guarding or tenderness : Spontaneously voiding, no pain, no CVA tenderness, Extremities: Normal inspection, no peripheral edema or erythema, calfs nontender to palpation Psych: Normal mood and affect Skin: no rash or erythema Results & Data Results & Data ([facility]) Vital Signs (Past 12 Hours) Vital Signs Temp Pulse Pulse Resp BP BP Pulse Ox 12/07/20 19:27 76 20 151/74 H 96 12/07/20 18:13 68 20 128/67 98 12/07/20 16:25 36.1 C L 63 20 154/80 H 98 Laboratory Results Abnormal lab results 12/07/20 12/07/20 12/07/20 Range/Units 17:57 17:57 18:25 WBC 12.01 H (4.8-10.8) K/uL RBC 4.19 L (4.2-5.4) M/uL Neut # (Auto) 10.31 H (1.4-6.5) K/uL Glucose 104 H (70-99) mg/dl AST (15-37) U/L Alkaline Phosphatase 130 H (45-117) U/L Urine Appearance Cloudy A (Clear) Urine Protein 2+ H (Negative) Urine Blood 3+ H (Negative) Ur Leukocyte Esterase 1+ H (Negative) Urine RBC (Auto) 10-30 H (0-4) /hpf U Epithel Cells (Auto) 5-10 H (0-5) /lpf Urine Yeast Budding A (None Prsent) 12/07/20 Range/Units 19:06 WBC (4.8-10.8) K/uL RBC (4.2-5.4) M/uL Neut # (Auto) (1.4-6.5) K/uL Glucose (70-99) mg/dl AST 12 L (15-37) U/L Alkaline Phosphatase (45-117) U/L Urine Appearance (Clear) Urine Protein (Negative) Urine Blood (Negative) Ur Leukocyte Esterase (Negative) Urine RBC (Auto) (0-4) /hpf U Epithel Cells (Auto) (0-5) /lpf Urine Yeast (None Prsent) Diagnostic Findings Abdomen/Pelvis CT 12/07/20 17:[address] WITH IV CONTRAST CT DOSE: 441.77 mGy.cm HISTORY: r mid abd pain TECHNIQUE: Multiaxial CT images of the abdomen and pelvis were performed following the use of intravenous contrast. A dose lowering technique was utilized adhering to the principles of ALARA. COMPARISON STUDY: None. FINDINGS: The lung bases are clear. No pneumoperitoneum. No pneumatosis. No suspicious lytic or blastic osseous lesions. The liver is mildly enlarged. No hepatic or splenic masses. Normal gallbladder. The pancreas and adrenal glands are unremarkable. Normal left kidney. A 6 mm hypodense lesion within the lower pole of the right kidney is technically too small to characterize but statistically represents a cyst. There is a 1.2 cm nonobstructing stone within the right renal pelvis. There is mild urothelial thickening within the right renal collecting system, right renal pelvis, and majority of the right ureter. No ureteral stones identified. Mild inflammatory change surrounding the right renal pelvis. The bladder is unremarkable. There is a 5.5 cm heterogeneous enhancing mass within the uterus likely representing a fibroid. There are few small right ovarian cyst. Normal left ovary. No pelvic free fluid. Normal caliber abdominal aorta. There is a left retroaortic renal vein. No retroperitoneal lymphadenopathy. The main portal vein is patent. No bowel wall thickening or obstruction. Normal appendix. IMPRESSION: 1. There is a 1.2 cm nonobstructing stone within the right renal pelvis. There is mild urothelial thickening within the right renal collecting system, right r enal pelvis, and majority of the right ureter. Mild inflammatory change surrounding the right renal pelvis. Findings suggest a right-sided pyelitis/pyelonephritis. Recommend correlation with urinalysis. 2. No ureteral stones. No hydronephrosis. 3. No bowel wall thickening or obstruction. 4. Normal appendix. 5. A 5.5 cm heterogeneously enhancing mass within the uterine fundus. This favors a uterine fibroid. 6. Hepatomegaly. ACT 112: Negative or not required by law. Electronically signed by: Emiliano Gong M.D. 12/07/2020 7:39 PM Medications Administered Discontinued Medications Fluconazole (Fluconazole 100 Mg Tab) 200 mg PO NOW STA Stop: 12/07/20 20:09 Last Admin: 12/07/20 20:49 Dose: 200 mg Documented by: [id number] Sodium Chloride (Nss 1000ml) 2,000 mls @ 999 mls/hr IV .Q2H1M ONE Stop: 12/07/20 19:46 Last Infusion: 12/07/20 20:31 Dose: 0 mls/hr Documented by: [id number] Admin: 12/07/20 18:22 Dose: 999 mls/hr Documented by: [id number] Ceftriaxone Sodium (Rocephin) 1,000 mg in 50 mls @ 100 mls/hr IV NOW STA Stop: 12/07/20 20:15 Last Infusion: 12/07/20 20:31 Dose: 0 mls/hr Documented by: [id number] Admin: 12/07/20 19:56 Dose: 100 mls/hr Documented by: [id number] Cefepime HCl 2,000 mg/ Syringe 20 mls @ 5 mls/min IV NOW STA; Protocol Stop: 12/07/20 20:04 Last Admin: 12/07/20 20:49 Dose: 5 mls/min Documented by: [id number] Ioversol (Optiray 320 100ml) 94 ml IV ONCE ONE Stop: 12/07/20 19:21 Last Admin: 12/07/20 19:20 Dose: 94 ml Documented by: [id number] Morphine Sulfate (Morphine Sulfate 4 Mg/Ml 1 Ml Carp\Vial) 4 mg IV NOW STA Stop: 12/07/20 20:02 Last Admin: 12/07/20 20:56 Dose: 4 mg Documented by: [id number] ECG Additional Comments: Normal sinus rhythm Nonspecific T wave abnormality Abnormal ECG No previous ECGs available Code Status & VTE Plan Code Status CODE: FULL VTE: SCD's, Heparin, Ambulation Supervising Physician Co-Signing Physician Notes Patient seen and examined, chart reviewed, case discussed with MISHA Valerio and I agree with his assessment and plan as documented above. Briefly, 60yo female with nonobstructing stone, pyelonephritis. UA with budding yeast. Patient is immunocompetent, no recent instrumentation or catheters. No vaginal complaints Exam unremarkable as above Labs and images reviewed Assessment/plan: -Zosyn, Fluconazole -Urology appreciated -follow cultures -Remainder of plan as above PG Care Time/CCT Total # of Minutes Spent Total Time Spent with Patient: Total time spent is greater than 50% in coordination of care (as documented) at patient's floor/unit and/or counseling patient: Coding Level of Care Code 62935 Initial Inpt Care Lvl 2 Diagnoses Pyelonephritis N12 Nephrolithiasis N20.0 Abnormal urine R82.90
[2020-12-07] MEDS ORDERED: PIPERACILL/TAZOBAC CONSULT ACTIVE PRN (20:58)
[2020-12-07] MEDS ORDERED: MoRPHine SULFATE 2 MG/ML CARP IV PRN (23:05)
[2020-12-07] MEDS ORDERED: oxyCODONE HCL IR 5 MG TAB (IMMEDIATE RELEASE) PO PRN (23:05)
[2020-12-07] MEDS ORDERED: PIPERACILLIN/TAZOBACTAM 3.375 GM in DEXTROSE 5% 100 ML IV ONE (23:15)
[2020-12-08] MEDS ORDERED: PIPERACILLIN/TAZOBACTAM 3.375 GM in DEXTROSE 5% 100 ML IV SCH (04:00)
[2020-12-08 05:46] LABS: Basophils # (auto) 0.01 K/uL (0-0.2); Basophils % (auto) 0.1 %; Eosinophils % (auto) 1.4 %; Hematocrit (blood only) 35.2 % (37-47); Hemoglobin 11.9 g/dL (12.0-16.0); Immature Granulocytes # (auto) 0.01 K/uL (0.00-0.02); Immature Granulocytes % (auto) 0.1 %; Lymphocytes # (auto) 2.65 K/uL (1.2-3.4); Lymphocytes % (auto) 36.2 %; Mean Corpuscular Hemoglobin 31.6 pg (25-34); Mean Corpuscular Hgb Conc 33.8 g/dL (32-36); Mean Corpuscular Volume 93.6 fL (80-100); Mean Platelet Volume 9.4 fL (7.4-10.4); Monocytes % (auto) 6.8 %; Neutrophils # (auto) 4.05 K/uL (1.4-6.5); Neutrophils % (auto) 55.4 %; Platelet Count 235 K/uL (130-400); RDW Coefficient of Variation 12.8 % (11.5-14.5); RDW Standard Deviation 43.9 fL (36.4-46.3); Red Blood Count 3.76 M/uL (4.2-5.4); White Blood Count 7.32 K/uL (4.8-10.8)
[2020-12-08 06:24] LABS: BUN Creatinine Ratio 20.6 (10-20); Calcium 8.8 mg/dl (8.5-10.1); Creatinine Clr Calc Pharmacy 84.3 ml/min; Est GFR (African American) 98.1 ml/min; Est GFR (Non-African American) 84.7 ml/min; Magnesium 2.2 mg/dl (1.8-2.4); Potassium 3.8 mmol/L (3.5-5.1)
[2020-12-08] MEDS ORDERED: FLUCONAZOLE SUSP 200 MG/5 ML UDP PO SCH (09:00)
--- NOTE | 2020-12-08 09:06 | Hospitalist Progress Note ---
Date of Service December 08, 2020 Assessment & Plan (1) Pyelonephritis: 60-year-old female with no specific past medical history presents with 1 week of worsening back pain and associated nausea vomiting and diarrhea diagnosed with 1.2 mm nonobstructing kidney stone and associated pyelonephritis #Flank pain - Concern of Pyelonephritis CT finding of pelvis inflammatory changes could be secondary to stone intermittently getting obstructed. - Ceftriaxone - Fluconazole 200mg PO daily for yeast in urine. Less likely contributing to the presentation. - Follow-up urine cultures narrow antibiotics pending speciation and sensitivities #Nephrolithiasis -Pain control -Morphine 2 mg IV every 2 hours as needed -Toradol 50 mg IV every 6 hours as needed -OxyIR 5 mg every 6 hours as needed -Tylenol every 6 hours as needed -Urology is consulted -N.p.o. after midnight 12/08 in the event surgical intervention is warranted FENa: N.p.o. pending urology consultation Code Status: Full code DVT PPX: SCDs PT/OT: Not indicated at present Dispo: John Martin MD PGY 2, FCM This chart was completed utilizing [employer]ica[employer] voice recognition software. Grammatical errors, random word insertions, pronoun errors, and in complete sentences are an occasional consequence of the system. Any questions or concerns about the content, text, or information contained within the body of this dictation should be addressed directly to the physician for clarification. (2) Nephrolithiasis: (3) Abnormal urine: As per HPI - resend urine in morning Admission and Anticipated Discharge Date Admission Date: December 07, 2020 Supervising Physician Co-Signing Physician Notes Resident Physician Supervision Note: I independently interviewed and examined the patient and verified the snyder history and physical, reviewed labs and image studies and agree with resident Dr. Arias Martin findings and care plan. Subjective Patient lying in bed this morning in no acute distress. Patient reports sleeping well overnight, patient reports tolerating her diet, voiding, stooling. Patient reported history is similar to that in H&P. Acute concerns relate to urology consultation Physical Exam Physical Exam: General: No acute distress Cardiac: Regular rate and rhythm I did not appreciate significant murmurs rubs or gallops, normal S1, normal S2, negative pedal edema, negative calf tenderness Respiratory: Clear to auscultation bilaterally with symmetrical chest expansion I did not appreciate significant wheezes, rales, rhonchi, GI: Soft, nontender, nondistended, bowel sounds present in all 4 quadrants, negative CVA tenderness Neuro: Alert and oriented x4 Psych: Calm and cooperative with interview Results & Data Results & Data ([facility]) Vital Signs (Past 12 Hours) Vital Signs Temp Pulse Pulse Resp BP BP Pulse Ox 12/08/20 07:22 36.6 C 57 L 16 118/74 96 12/07/20 23:05 36.7 C 70 16 146/79 H 97 12/07/20 22:00 69 20 139/76 96 12/07/20 21:31 69 22 147/77 H 98 Laboratory Results 12/08/20 12/08/20 12/07/20 Range/Units 05:32 05:32 23:55 WBC 7.32 (4.8-10.8) K/uL RBC 3.76 L (4.2-5.4) M/uL Hgb 11.9 L (12.0-16.0) g/dL Hct 35.2 L (37-47) % MCV 93.6 (80-100) fL MCH 31.6 (25-34) pg MCHC 33.8 (32-36) g/dL RDW Std Deviation 43.9 (36.4-46.3) fL RDW Coeff of Tiffany 12.8 (11.5-14.5) % Plt Count 235 (130-400) K/uL MPV 9.4 (7.4-10.4) fL Immature Gran % (Auto) 0.1 % Neut % (Auto) 55.4 % Lymph % (Auto) 36.2 % [place] % (Auto) 6.8 % Eos % (Auto) 1.4 % Baso % (Auto) 0.1 % Neut # (Auto) 4.05 (1.4-6.5) K/uL Lymph # (Auto) 2.65 (1.2-3.4) K/uL [place] # (Auto) 0.50 (0.11-0.59) K/uL Eos # (Auto) 0.10 (0-0.5) K/uL Baso # (Auto) 0.01 (0-0.2) K/uL Immature Gran # (Auto) 0.01 (0.00-0.02) K/uL Sodium 139 (136-145) mmol/L Potassium 3.8 (3.5-5.1) mmol/L Chloride 106 (98-107) mmol/L Carbon Dioxide 26 (21-32) mmol/L Anion Gap 6.0 (3-11) BUN 16 (7-18) mg/dl Creatinine 0.76 (0.6-1.2) mg/dl Est Cr Clr Drug Dosing 84.3 ml/min Est GFR ( Amer) 98.1 ml/min Est GFR (Non-Af Amer) 84.7 ml/min BUN/Creatinine Ratio 20.6 H (10-20) Glucose 102 H (70-99) mg/dl Calcium 8.8 (8.5-10.1) mg/dl Magnesium 2.2 (1.8-2.4) mg/dl Total Bilirubin (0.2-1) mg/dl AST (15-37) U/L ALT (12-78) U/L Alkaline Phosphatase (45-117) U/L Total Protein (6.4-8.2) gm/dl Albumin (3.4-5.0) gm/dl Globulin (2.5-4.0) gm/dl Albumin/Globulin Ratio (0.9-2) Lipase (73-393) U/L Procalcitonin < 0.05 (0-0.5) ng/ml Urine Color Urine Appearance (Clear) Urine pH (4.5-7.5) Ur Specific [place] (1.000-1.030) Urine Protein (Negative) Urine Glucose (UA) (Negative) Urine Ketones (Negative) Urine Blood (Negative) Urine Nitrite (Negative) Urine Bilirubin (Negative) Urine Urobilinogen (Negative) Ur Leukocyte Esterase (Negative) Urine WBC (Auto) (0-5) /hpf Urine RBC (Auto) (0-4) /hpf U Hyaline Cast (Auto) (0-5) /lpf U Epithel Cells (Auto) (0-5) /lpf Urine Bacteria (Auto) (Negative) Urine Yeast (None Prsent) COVID-19 Eval Order SARS-CoV-2 (PCR) (Negative) 12/07/20 12/07/20 12/07/20 Range/Units 21:02 21:02 19:06 WBC (4.8-10.8) K/uL RBC (4.2-5.4) M/uL Hgb (12.0-16.0) g/dL Hct (37-47) % MCV (80-100) fL MCH (25-34) pg MCHC (32-36) g/dL RDW Std Deviation (36.4-46.3) fL RDW Coeff of Tiffany (11.5-14.5) % Plt Count (130-400) K/uL MPV (7.4-10.4) fL Immature Gran % (Auto) % Neut % (Auto) % Lymph % (Auto) % [place] % (Auto) % Eos % (Auto) % Baso % (Auto) % Neut # (Auto) (1.4-6.5) K/uL Lymph # (Auto) (1.2-3.4) K/uL [place] # (Auto) (0.11-0.59) K/uL Eos # (Auto) (0-0.5) K/uL Baso # (Auto) (0-0.2) K/uL Immature Gran # (Auto) (0.00-0.02) K/uL Sodium (136-145) mmol/L Potassium 4.0 (3.5-5.1) mmol/L Chloride (98-107) mmol/L Carbon Dioxide (21-32) mmol/L Anion Gap (3-11) BUN (7-18) mg/dl Creatinine (0.6-1.2) mg/dl Est Cr Clr Drug Dosing ml/min Est GFR ( Amer) ml/min Est GFR (Non-Af Amer) ml/min BUN/Creatinine Ratio (10-20) Glucose (70-99) mg/dl Calcium (8.5-10.1) mg/dl Magnesium (1.8-2.4) mg/dl Total Bilirubin (0.2-1) mg/dl AST 12 L (15-37) U/L ALT (12-78) U/L Alkaline Phosphatase (45-117) U/L Total Protein (6.4-8.2) gm/dl Albumin (3.4-5.0) gm/dl Globulin (2.5-4.0) gm/dl Albumin/Globulin Ratio (0.9-2) Lipase (73-393) U/L Procalcitonin (0-0.5) ng/ml Urine Color Urine Appearance (Clear) Urine pH (4.5-7.5) Ur Specific [place] (1.000-1.030) Urine Protein (Negative) Urine Glucose (UA) (Negative) Urine Ketones (Negative) Urine Blood (Negative) Urine Nitrite (Negative) Urine Bilirubin (Negative) Urine Urobilinogen (Negative) Ur Leukocyte Esterase (Negative) Urine WBC (Auto) (0-5) /hpf Urine RBC (Auto) (0-4) /hpf U Hyaline Cast (Auto) (0-5) /lpf U Epithel Cells (Auto) (0-5) /lpf Urine Bacteria (Auto) (Negative) Urine Yeast (None Prsent) COVID-19 Eval Order Covid19 at [facility] SARS-CoV-2 (PCR) NEGATIVE (Negative) 12/07/20 12/07/20 12/07/20 Range/Units 18:25 17:57 17:57 WBC 12.01 H (4.8-10.8) K/uL RBC 4.19 L (4.2-5.4) M/uL Hgb 13.4 (12.0-16.0) g/dL Hct 39.8 (37-47) % MCV 95.0 (80-100) fL MCH 32.0 (25-34) pg MCHC 33.7 (32-36) g/dL RDW Std Deviation 43.6 (36.4-46.3) fL RDW Coeff of Tiffany 12.7 (11.5-14.5) % Plt Count 274 (130-400) K/uL MPV 9.6 (7.4-10.4) fL Immature Gran % (Auto) 0.1 % Neut % (Auto) 85.8 % Lymph % (Auto) 11.4 % [place] % (Auto) 2.4 % Eos % (Auto) 0.2 % Baso % (Auto) 0.1 % Neut # (Auto) 10.31 H (1.4-6.5) K/uL Lymph # (Auto) 1.37 (1.2-3.4) K/uL [place] # (Auto) 0.29 (0.11-0.59) K/uL Eos # (Auto) 0.02 (0-0.5) K/uL Baso # (Auto) 0.01 (0-0.2) K/uL Immature Gran # (Auto) 0.01 (0.00-0.02) K/uL Sodium 138 (136-145) mmol/L Potassium (3.5-5.1) mmol/L Chloride 105 (98-107) mmol/L Carbon Dioxide 27 (21-32) mmol/L Anion Gap 6.0 (3-11) BUN 15 (7-18) mg/dl Creatinine 0.79 (0.6-1.2) mg/dl Est Cr Clr Drug Dosing 80.9 ml/min Est GFR ( Amer) 93.6 ml/min Est GFR (Non-Af Amer) 80.8 ml/min BUN/Creatinine Ratio 18.8 (10-20) Glucose 104 H (70-99) mg/dl Calcium 9.4 (8.5-10.1) mg/dl Magnesium (1.8-2.4) mg/dl Total Bilirubin 0.4 (0.2-1) mg/dl AST (15-37) U/L ALT 36 (12-78) U/L Alkaline Phosphatase 130 H (45-117) U/L Total Protein 7.7 (6.4-8.2) gm/dl Albumin 4.0 (3.4-5.0) gm/dl Globulin 3.7 (2.5-4.0) gm/dl Albumin/Globulin Ratio 1.1 (0.9-2) Lipase 259 (73-393) U/L Procalcitonin (0-0.5) ng/ml Urine Color Yellow Urine Appearance Cloudy A (Clear) Urine pH 5.0 (4.5-7.5) Ur Specific [place] 1.018 (1.000-1.030) Urine Protein 2+ H (Negative) Urine Glucose (UA) Negative (Negative) Urine Ketones Negative (Negative) Urine Blood 3+ H (Negative) Urine Nitrite Negative (Negative) Urine Bilirubin Negative (Negative) Urine Urobilinogen Negative (Negative) Ur Leukocyte Esterase 1+ H (Negative) Urine WBC (Auto) 1-5 (0-5) /hpf Urine RBC (Auto) 10-30 H (0-4) /hpf U Hyaline Cast (Auto) 1-5 (0-5) /lpf U Epithel Cells (Auto) 5-10 H (0-5) /lpf Urine Bacteria (Auto) Negative (Negative) Urine Yeast Budding A (None Prsent) COVID-19 Eval Order SARS-CoV-2 (PCR) (Negative) Medications Administered Current Inpatient Medications Fluconazole (Fluconazole 100 Mg Tab) 200 mg PO QAM DIANE Stop: 12/18/20 08:59 Last Admin: 12/08/20 09:51 Dose: 200 mg Documented by: Heparin Sodium (Porcine) (Heparin Sod 5,000 Unit/0.5 Ml Vial) 5,000 units SQ Q12 DIANE Stop: 01/07/21 08:59 Last Admin: 12/08/20 09:50 Dose: 5,000 units Documented by: Ceftriaxone Sodium 2,000 mg/ (Dextrose) 70 mls @ 140 mls/hr IV Q24H [facility]; Protocol Stop: 12/18/20 11:59 Lactated Ringer's (Lr) 1,000 mls @ 125 mls/hr IV .Q8H DIANE; Protocol Stop: 01/07/21 10:44 Ketorolac Tromethamine (Ketorolac Tromethamine 15 Mg/Ml Vial) 15 mg IV Q6H PRN PRN Reason: Pain Stop: 12/12/20 23:04 Morphine Sulfate (Morphine Sulfate 2 Mg/Ml Carp) 2 mg IV Q4 PRN PRN Reason: Severe Pain Stop: 12/21/20 23:04 Oxycodone HCl (Oxycodone Hcl Ir 5 Mg Tab (Immediate Release)) 5 mg PO Q6 PRN PRN Reason: Moderate Pain Stop: 12/21/20 23:04 Resident Activity Tracking Resident Involvement: Resident Care Provided Care Provided: Adult Hospital Medicine
[2020-12-08] MEDS: HEPARIN SOD 5,000 UNIT/0.5 ML VIAL SQ SCH ×2 (09:50→21:13)
[2020-12-08] MEDS: FLUCONAZOLE 100 MG TAB PO SCH (09:51)
[2020-12-08] MEDS: cefTRIAXone SODIUM 2,000 MG in DEXTROSE 5% 50 ML IV SCH (12:19)
[2020-12-08] MEDS: KETOROLAC TROMETHAMINE 15 MG/ML VIAL IV PRN ×2 (12:19→19:36)
[2020-12-08] MEDS: LACTATED RINGER'S 1,000 ML IV SCH ×2 (12:19→21:13)
--- NOTE | 2020-12-08 12:34 | Urology Consultation ---
Date of Consultation December 08, 2020 Assessment & Plan (1) Nephrolithiasis: Patient admitted with acute pyelonephritis with suspected UTI. Does have budding yeast in urine. Patient has minimal symptoms on the flank. Does have considerable signs on CT imaging. Patient also has a large stone within the kidney. Did discuss possibility of intermittent obstruction. At this point patient has not showing obvious signs of obstruction without major discomfort or issues and has been improving while on IV antibiotics. Patient had considerable ill feelings. Has improved from majority of these. Discussed need for full culture and sensitivities. Will likely need to determine a course of antibiotics for treatment. Plan is to continue to monitor closely. Will make patient n.p.o. at midnight with plans for possible intervention if patient is showing signs of obstruction. Will likely need stone treated at some point. Will likely need to plan this after adequate treatment of patient's illness. Patient's got no considerable medical history up to this point has not needed any medications. No major family history of issues. Patient's imaging with CT scan was reviewed interpreted by myself. Considerable signs of pyelonephritis/pyelitis on imaging with large nonobstructing stone. We will continue with patient monitoring. Will reassess in the morning and determine if intervention is necessary if not will likely need a 10 to 14-day course of antibiotics for management of pyelonephritis. (2) Pyelonephritis: (3) Abdominal pain: History of Present Illness Attending Physician: Zara Lee MD History of Present Illness New consultation for patient with UTI/Pyelo, discomfort, and ill feelings. Patient developed sudden onset of pain into flank going down and radiating into groin and back in waves comes and goes. Can be severe at times. Discussed and reviewed patient's family history for any history of issues, infections, and disease. Also, discussed patient's medical/surgery history especially related to any history of urinary issues or stone disease. Patient was admitted and is undergoing observation with broad spectrum IV antib iotics. Allergies Allergy/AdvReac Type Severity Reaction Status Date / Time No Known Drug Allergies Allergy Unknown . Verified 12/07/20 18:08 Home Medications Medication Instructions Recorded Confirmed Type No Known Home Medications 12/07/20 12/07/20 History Patient History Social History Smoking Status: Never smoker Hx Alcohol Use: Yes Hx Substance Use: No Preferred Language: Pakistani Communication Ability: Effective Director Emergency Required: No Beliefs That Will Affect Care: None Current Living Situation: Alone Other Information That Helps Us Care for You: No Feels Safe at Home: Yes Safety Concerns: Feels Safe At This Time Assistive Devices: None Review of Systems Review of Systems: All systems reviewed & are unremarkable except as noted in HPI & below Physical Exam Physical Exam: General: Alert and oriented x 3 in no acute distress. Patient is well nourished and well kept. HEENT: Normocephalic Atraumatic. Inspection normal. Cranial Nerves 2-12 Grossly intact. Nares are clear. Neck is supple. Normal inspection of face. Normal inspection of neck. Neurologic: No deficits on inspection. Baseline for motor function and sensory. Psychologic: Normal affect. Respiratory: Nonlabored. No use of accessory muscles. No tachypnea or dyspnea. Cardiovascular: No tachycardia Skin: [place] and Dry. No rashes or visible lesions. Extremities: Moving without issues. No motor deficits on inspection Lymphatics: No edema Abdomen: Soft Non-distended. No acites. No rebound or guarding. Results & Data ([facility]) Vital Signs (Past 12 Hours) Vital Signs Temp Pulse Resp BP Pulse Ox 12/08/20 07:22 36.6 C 57 L 16 118/74 96 PG Care Time/CCT Total # of Minutes Spent Total Time Spent with Patient: Total time spent is greater than 50% in coordination of care (as documented) at patient's floor/unit and/or counseling patient: Coding Level of Care Code 79637 Inpt Consult Level 5 Diagnoses Nephrolithiasis N20.0 Pyelonephritis N12 Abdominal pain R10.9 Abdominal location: unspecified location (1) Abdominal pain Abdominal location: unspecified location Qualified Code(s): R10.9 - Unspecified abdominal pain
--- NOTE | 2020-12-08 21:18 | XRay Report ---
XR KUB/Abdomen 1 view CLINICAL HISTORY: nephrolith COMPARISON STUDY: No previous studies for comparison. FINDINGS: Multiple gas and stool-filled loops of bowel are nondilated. Moderate amount of stool is seen within left hemiabdomen which might obscure small calculi. No significant radiopaque densities are seen to suggest nephrolithiasis. Few calculi within pelvic re gion might represent phleboliths. Minimal degenerative changes of the spine are seen. IMPRESSION: 1. No definite calculi to suggest nephrolithiasis are seen. ACT 112: Negative or not required by law. The above report was generated using voice recognition software. It may contain grammatical, syntax o r spelling errors. Electronically signed by: Amanda Rosales DO 12/08/2020 9:17 PM
[2020-12-09] MEDS: LACTATED RINGER'S 1,000 ML IV SCH ×2 (05:13→14:06)
[2020-12-09 05:51] LABS: Basophils # (auto) 0.01 K/uL (0-0.2); Basophils % (auto) 0.2 %; Eosinophils # (auto) 0.09 K/uL (0-0.5); Eosinophils % (auto) 1.5 %; Hematocrit (blood only) 35.1 % (37-47); Hemoglobin 11.7 g/dL (12.0-16.0); Immature Granulocytes # (auto) 0.01 K/uL (0.00-0.02); Immature Granulocytes % (auto) 0.2 %; Lymphocytes # (auto) 2.66 K/uL (1.2-3.4); Mean Corpuscular Hemoglobin 31.6 pg (25-34); Mean Corpuscular Hgb Conc 33.3 g/dL (32-36); Mean Corpuscular Volume 94.9 fL (80-100); Mean Platelet Volume 9.2 fL (7.4-10.4); Monocytes # (auto) 0.36 K/uL (0.11-0.59); Monocytes % (auto) 6.1 %; Neutrophils # (auto) 2.78 K/uL (1.4-6.5); Platelet Count 233 K/uL (130-400); RDW Coefficient of Variation 12.8 % (11.5-14.5); RDW Standard Deviation 44.2 fL (36.4-46.3); White Blood Count 5.91 K/uL (4.8-10.8)
[2020-12-09 06:18] LABS: BUN Creatinine Ratio 16.4 (10-20); Calcium 8.2 mg/dl (8.5-10.1); Creatinine Clr Calc Pharmacy 87.7 ml/min; Est GFR (Non-African American) 88.9 ml/min; Magnesium 2.1 mg/dl (1.8-2.4); Potassium 3.8 mmol/L (3.5-5.1)
[2020-12-09] MEDS: KETOROLAC TROMETHAMINE 15 MG/ML VIAL IV PRN ×2 (07:37→16:47)
--- NOTE | 2020-12-09 08:01 | XRay Report ---
KUB HISTORY: Follow up study in a patient with renal calculi right renal pelvis calculus COMPARISON: KUB 12/08/2020, CT abdomen and pelvis 12/07/2020 FINDINGS: The bowel gas pattern is non-obstructive. There is no organomegaly. Unchanged positioning of the 1.2 cm calculus of the right renal pelvis. No additional renal or ureteral calculi identified. Pelvic basin calcifications suggestive of phleboliths redemonstrated. No pneumoperitoneum or pneumat osis. No fracture. IMPRESSION: Unchanged positioning of the 1.2 cm calculus of the right renal pelvis. ACT 112: Negative or not required by law. The above report was generated using voice recognition software. It may contain grammatical, syntax o r spelling errors. Electronically signed by: Baltazar Talavera M.D. 12/09/2020 8:00 AM
[2020-12-09] MEDS: HEPARIN SOD 5,000 UNIT/0.5 ML VIAL SQ SCH (08:45)
[2020-12-09] MEDS: FLUCONAZOLE 100 MG TAB PO SCH (08:45)
--- NOTE | 2020-12-09 09:01 | Urology Progress Note ---
Date of Service December 09, 2020 Assessment & Plan (1) Pyelonephritis: (2) Nephrolithiasis: 60 year-old female patient, admitted with right-sided pyelitis/pyelonephritis, found to have large 1.2 cm nonobstructing stone within the right renal pelvis. -Plan of care reviewed with Dr. Su. -Patient afebrile. -Labs reviewed - white count and creatinine stable. -Preliminary blood cultures no growth after 24 hours. -Urine culture with high counts of probable skin rashaun. -Continue supportive care and antibiotic therapy. -Discussed treatment options in detail with patient including continued observation with antibiotic therapy versus placement of ureteral stent today versus outpatient stone management. -She elects to pursue surgical intervention today, keep NPO. Findings reviewed with Dr. Su. Given her pyelitis/pyelonephritis with concern for intermittent obstruction in the context of large 1.2 cm stone within right renal pelvis, will proceed with OR for cystoscopy, right retrograde pyelogram and right stent placement. Risks and benefits of the procedure discussed and to be reviewed with patient by Dr. Su. OR notified. Preoperative CXR and EKG ordered. COVID-19 negative. Patient covered with IV Ceftriaxone preoperatively. Attending note: Patient had significant pyelonephritis/pyelitis with large renal pelvis stone. Will likely need intervention on stone. Concern for intermittent obstruction. Patient is interested in proceeding with stent. Stone is easily visualized on KUB and would likely be excellent candidate for ESWL as an outpatient. Risks and benefits discussed at length for procedure. These include bleeding, infection, injury to surrounding tissues or organs, and risks associated with anesthesia. Patient states understanding and agrees to proceed. Will sign consent and proceed. Plan for cystoscopy with right stent placement. Admission and Anticipated Discharge Date Admission Date: December 07, 2020 Subjective Patient examined at bedside. She is awake, alert, and non-toxic on exam. Does report lower abdominal discomfort. Denies flank pain. Denies nausea or vomiting. Denies fevers or chills. Denies dysuria or hematuria. Denies urinary frequency/urgency. Feels she empties her bladder well overall. Has been ambulating without dizziness/lightheadedness. Has also been NPO since midnight. Chart review: Afebrile Wbc 5.91 Hgb 11.7 Creatinine 0.73 Preliminary blood cultures no growth after 24 hours. Urine culture more than three types of organisms present, all high counts mixed probable skin rashaun. Patient currently on IV Ceftriaxone. Denies additional urologic concerns today. Review of Systems Constitutional: as per Subjective / HPI; no fever and no chills Cardiovascular: no chest pain and no edema Gastrointestinal: as per Subjective / HPI; no nausea and no vomiting Genitourinary: as per Subjective / HPI; no dysuria Neurologic: as per Subjective / HPI Physical Exam Constitutional: well developed and well nourished; no acute distress and not ill appearing Respiratory: normal respiratory effort and able to speak in complete sentences; no respiratory distress and no audible wheezes Gastrointestinal (Abdomen): Inspection/Auscultation: abdomen normal to inspection; abdomen not distended Percussion/Palpation: abdomen soft; abdomen nontender and no guarding Psychiatric: Orientation: alert, oriented x 3 and cooperative Affect: euthymic affect Results & Data ([facility]) Vital Signs (Past 12 Hours) Vital Signs Temp Pulse Pulse Resp BP Pulse Ox 12/09/20 07:40 36.4 C L 67 18 133/78 98 12/08/20 22:25 36.6 C 65 16 125/71 93 PG Care Time/CCT Total # of Minutes Spent Total Time Spent with Patient: Total time spent is greater than 50% in coordination of care (as documented) at patient's floor/unit and/or counseling patient: Coding Level of Care Code 02567 Subseq Hosp Care Lvl 2 Diagnoses Pyelonephritis N12 Nephrolithiasis N20.0
[2020-12-09] MEDS: cefTRIAXone SODIUM 2,000 MG in DEXTROSE 5% 50 ML IV SCH (11:55)
[2020-12-09] MEDS ORDERED: PROPOFOL IV EMULSION 10 MG/ML 20 ML VIAL IV ONE ×2 (14:43→15:39)
[2020-12-09] MEDS ORDERED: LIDOCAINE 2% 2 ML VIAL/AMP(20MG/ML) INFIL ONE (14:43)
[2020-12-09] MEDS ORDERED: fentaNYL citrate 100 MCG/2 ML VIAL ONE (14:43)
[2020-12-09] MEDS ORDERED: MIDAZOLAM HCL 1 MG/ML 2ML VIAL ONE (14:44)
[2020-12-09] MEDS ORDERED: ATROPINE SULFATE 0.1 MG/ML 10ML SYR IV PRN (14:55)
[2020-12-09] MEDS ORDERED: ONDANSETRON INJ 2 MG/ML 2 ML VIAL IV PRN (14:55)
[2020-12-09] MEDS ORDERED: ePHEDrine sulfate 50 MG/ML AMP IV PRN (14:55)
[2020-12-09] MEDS ORDERED: fentaNYL citrate 100 MCG/2 ML VIAL IV PRN (14:55)
--- NOTE | 2020-12-09 14:55 | Anesthesiology Consultation ---
Date of Service December 09, 2020 Assessment & Plan ASA ASA2 Proposed Anesthesia Anesthesia Type: MAC Risk / Benefits Reviewed With: PT / POA / Parent / Guardian, Accepts Plan and Informed Consent Obtained History Surgery Operation Date: 12/09/20 08:05 Proposed Procedures p Cystoscopy, Right Retrpgrade Pyelogram, Right Ureteral Stent Placement - Sebastián Su, DO Height/Weight Height: 5 ft 6 in Weight: 82.7 kg Allergies Allergy/AdvReac Type Severity Reaction Status Date / Time No Known Drug Allergies Allergy Unknown . Verified 12/07/20 18:08 Medications Home Medications Medication Instructions Recorded Confirmed Last Taken No Known Home Medications 12/07/20 12/07/20 Unknown Active Medications Generic Name Dose Route Start Last Admin Trade Name Freq PRN Reason Stop Dose Admin Fluconazole 200 mg 12/08/20 09:00 12/09/20 08:45 Fluconazole 100 Mg Tab PO 12/18/20 08:59 200 mg QAM DIANE Administration Heparin Sodium (Porcine) 5,000 units 12/08/20 09:00 12/09/20 08:45 Heparin Sod 5,000 Unit/0.5 Ml Vial SQ 01/07/21 08:59 5,000 units Q12 DIANE Administration Ceftriaxone Sodium 2,000 mg/ 70 mls @ 140 mls/hr 12/08/20 12:00 12/09/20 12:25 Dextrose IV 12/18/20 11:59 Infused Q24H DIANE Infusion Protocol Lactated Ringer's 1,000 mls @ 125 mls/hr 12/08/20 10:45 12/09/20 14:06 Lr IV 01/07/21 10:44 125 mls/hr .Q8H DIANE Administration Protocol Ketorolac Tromethamine 15 mg 12/07/20 23:05 12/09/20 07:37 Ketorolac Tromethamine 15 Mg/Ml Vial IV 12/12/20 23:04 15 mg Q6H PRN Administration Pain NPO Date Last Intake of Fluids: 12/08/20 Date Last Intake of Solids: 12/08/20 Time Last Intake of Solids: 17:30 Exercise / Class Metabolic Activity II 4-5 Yardwork/Stairs/Walk up hill Past Anesthesia History No Hx of Anesthesia Complications and No Family Hx of Anesthesia Complications History of PONV No Hx of PONV and No Hx of Motion Sickness Social History Smoking Status: Never smoker Hx Alcohol Use: Yes alcohol intake frequency: a few times a month Hx Substance Use: No Review of Systems denies fever/cough/ colds/ chest pain/ SOB/ EDMUNDO denies EDMUNDO Physical Exam Vital Signs Last Vital Signs Temp 37.1 C 12/09/20 14:26 Pulse 70 12/09/20 14:26 Resp 18 12/09/20 14:26 BP 152/82 H 12/09/20 14:26 Pulse Ox 98 12/09/20 14:26 ENMT Mouth: no TMJ abnormality and no dentition abnormality Thyromental Distance: > or= 3.5 Finger Breadths Mallampati Class: II Neck neck extension not limited Respiratory normal respiratory effort; no respiratory distress Auscultation: lungs clear to auscultation bilaterally Cardiovascular Rate/Rhythm: regular rate and regular rhythm Neurologic moves all extremities Psychiatric Orientation: alert and oriented x 3 Testing Laboratory Results 12/09/20 05:39 12/09/20 05:39 Urine Color Yellow 12/07/20 18:25 Urine Appearance Cloudy (Clear) A 12/07/20 18:25 Urine pH 5.0 (4.5-7.5) 12/07/20 18:25 Ur Specific [place] 1.018 (1.000-1.030) 12/07/20 18:25 Urine Protein 2+ (Negative) H 12/07/20 18:25 Urine Glucose (UA) Negative (Negative) 12/07/20 18:25 Urine Ketones Negative (Negative) 12/07/20 18:25 Urine Nitrite Negative (Negative) 12/07/20 18:25 Ur Leukocyte Esterase 1+ (Negative) H 12/07/20 18:25 Urine WBC (Auto) 1-5 /hpf (0-5) 12/07/20 18:25 Urine RBC (Auto) 10-30 /hpf (0-4) H 12/07/20 18:25 U Hyaline Cast (Auto) 1-5 /lpf (0-5) 12/07/20 18:25 U Epithel Cells (Auto) 5-10 /lpf (0-5) H 12/07/20 18:25 Urine Bacteria (Auto) Negative (Negative) 12/07/20 18:25 12/07/20 18:25 Urine Culture - Final Urine,Clean Catch More than three types of organisms present, all high counts mixed probable skin rashaun - No further identifications or sensitivities to follow. 12/07/20 21:29 Aerobic Blood Culture - Preliminary Blood No growth in Aerobic bottle after 24 hours. Anaerobic Blood Culture - Preliminary No growth in Anaerobic bottle after 24 hours. 12/07/20 21:29 Aerobic Blood Culture - Preliminary Blood No growth in Aerobic bottle after 24 hours. Anaerobic Blood Culture - Preliminary No growth in Anaerobic bottle after 24 hours.
[2020-12-09] MEDS ORDERED: DIATRIZOATE MEGLUMINE 30% 100ML VIAL INSTIL ONE (15:48)
--- NOTE | 2020-12-09 15:51 | Operative Report ---
PG Post Operative Report Pre & Post Diagnosis Operation Date: 12/09/20 08:05 Pre-Op Diagnosis: PYELONEPHRITIS,WITH RENAL STONE Post-Op Diagnosis: PYELONEPHRITIS,WITH RENAL STONE I identified the patient and participated in the time-out.: Yes Procedure Operation Date: 12/09/20 08:05 Actual Procedures p Cystoscopy, Right Retrograde Pyelogram, Right Ureteral Stent Placement(Right) - Sebastián Su DO Surgeon Sebastián Su, II, DO Assembler Skylights None Estimated Blood Loss 1 Findings Consistent with Post-Op Diagnosis Stent placed in good position. Specimens None Drains 6 Fr Multilength Anesthesia Type MAC Complications none Disposition Disposition: Recovery Room Indications Patient with obstruction. Risks and benefits discussed at length. Description of Procedure Patient was consented and brought back to the operating room. Patient was placed under anesthesia in the supine position and moved to the dorsal lithotomy position. Patient was prepped and draped in the regular sterile fashion. A time out was completed. A 30degree Cystoscope was placed into the bladder and the entire bladder was examined. The UO's were identified. The UO was cannulized with a catheter and a retrograde pyelogram was completed. A wire was then placed. With the wire in place, a 6 Fr Double J stent was pl aced. It was confirmed with fluoroscopy. With the stent in place, the bladder was emptied. The scope was removed. The patient was cleaned, aroused from anesthesia, and transferred to the pacu in stable condition having tolerated the procedure well with no complications. I was present and participated in all aspects of the procedure. The patient will be monitored in the PACU until transferred. Plan to set up for Stone treatment in 2-3 weeks after completing course of antibiotics. I attest to the content of the Intraoperative Record and any orders documented therein. Any exceptions are noted below.
--- NOTE | 2020-12-09 16:11 | Anesthesiology Progress Note ---
Date of Service December 09, 2020 Anesthesia Post Procedure Vital Signs Vital Signs: Temp Pulse Pulse Resp BP Pulse Ox 12/09/20 16:00 68 18 134/84 97 12/09/20 15:54 37.1 C 77 14 138/67 98 12/09/20 14:26 37.1 C 70 18 152/82 H 98 12/09/20 07:40 36.4 C L 67 18 133/78 98 12/08/20 22:25 36.6 C 65 16 125/71 93 Pain Intensity Right Abdomen: Pain Intensity: 4 Head: Pain Intensity: 0 Transfer of Care Handoff Completed per policy Notes Mental Status: alert / awake / arousable Patient Amnestic to Procedure: Yes Nausea / Vomiting: adequately controlled Pain: adequately controlled Airway Patency, RR, SpO2: stable & adequate BP & HR: stable & adequate Hydration State: stable & adequate Anesthetic Complications: no major complications apparent
--- NOTE | 2020-12-09 16:35 | Fluoroscopy Report ---
FL retrograde includes kub CLINICAL HISTORY: RT STENT COMPARISON STUDY: CT of the abdomen and pelvis December 07, 2020. KUB December 09, 2020. FLUOROSCOPY TIME: 17 seconds. FLUOROSCOPIC IMAGES: 2 FINDINGS: Fluoroscopy was provided during right ureteral stent placement. Stent is appropriately posi tioned. A small amount of contrast within the right collecting system is noted. IMPRESSION: Fluoroscopy provided during placement of a right ureteral stent. ACT 112: Negative or not required by law. Electronically signed by: Rubin Maya M.D. 12/09/2020 4:34 PM
[2020-12-09] MEDS ORDERED: PHENAZOPYRIDINE HCL 100 MG TAB PO PRN (16:37)
--- NOTE | 2020-12-09 16:39 | Hospitalist Progress Note ---
Date of Service December 09, 2020 Assessment & Plan (1) Pyelonephritis: 60-year-old female with no specific past medical history presents with 1 week of worsening back pain and associated nausea vomiting and diarrhea diagnosed with 1.2 mm nonobstructing kidney stone and associated pyelonephritis #Pyelonephritis - Continue Ceftriaxone -Cultures continue to demonstrate no growth to date, narrow pending speciation - Fluconazole 200mg PO daily - Follow-up urine cultures narrow antibiotics pending speciation and sensitivities #Nephrolithiasis -Pain control -Morphine 2 mg IV every 2 hours as needed -Toradol 50 mg IV every 6 hours as needed -OxyIR 5 mg every 6 hours as needed -Tylenol every 6 hours as needed -Urology is consulted -Patient for cystoscopy, right retrograde pyelogram and right stent placement today -Routine postoperative care -Pyridium and oxybutynin ordered for bladder spasms FENa: Advance diet as tolerated Code Status: Full code DVT PPX: SCDs PT/OT: Not indicated at present Dispo: [facility] Arias Martin MD PGY 2, FCM This chart was completed utilizing [employer] voice recognition software. Grammatical errors, random word insertions, pronoun errors, and in complete sentences are an occasional consequence of the system. Any questions or concerns about the content, text, or information contained within the body of this dictation should be addressed directly to the physician for clarification. Admission and Anticipated Discharge Date Admission Date: December 07, 2020 Supervising Physician Co-Signing Physician Notes I personally examined the patient and verified all snyder points of history and exam, discussed case, and agree with decision making with . Feeling better, pain well controlled. Has voideddid have some hematuria but no significant pain. Feels up to going home. Vitals noted, in general she is awake and alert pleasant no distress. HEENT normocephalic atraumatic mucous membranes moist. Breathing unlabored no accessory muscle use good effort. Skin shows no rashes no pallor or icterus. Neuro without any focal deficits. Pyelonephritis, nephrolithiasis, concern on intermittent obstructionnow status post stenting, pain is well controlled, she is not septic, she is stable for home. Finish out 14 days of third-generation cephalosporinswitching from ceftriaxone to cefdinir. Pain control with ibuprofen/escalate Percocet as needed. Outpatient urology follow-up for ESWL and then stent removal at a later date. Otherwise as above Subjective Patient lying in bed this morning in no acute distress. Reported significant improvement in her symptoms and pain. Reviewed the patient's case with her, and confirmed understanding. All questions answered, acute concerns relate to plans regarding surgery. Physical Exam Physical Exam: General: No acute distress Cardiac: Regular rate and rhythm I did not appreciate significant murmurs rubs or gallops, normal S1, normal S2, negative pedal edema, negative calf tenderness Respiratory: Clear to auscultation bilaterally with symmetrical chest expansion I did not appreciate significant wheezes, rales, rhonchi, GI: Soft, nontender, nondistended, bowel sounds present in all 4 quadrants, negative CVA tenderness Neuro: Alert and oriented x4 Psych: Calm and cooperative with interview Results & Data Results & Data ([facility]) Vital Signs (Past 12 Hours) Vital Signs Temp Pulse Resp BP Pulse Ox 12/09/20 16:20 37.0 C 70 17 145/80 H 95 12/09/20 16:10 37.0 C 66 19 149/81 H 97 12/09/20 16:00 68 18 134/84 97 12/09/20 15:54 37.1 C 77 14 138/67 98 12/09/20 14:26 37.1 C 70 18 152/82 H 98 12/09/20 07:40 36.4 C L 67 18 133/78 98 Laboratory Results 12/09/20 12/09/20 Range/Units 05:39 05:39 WBC 5.91 (4.8-10.8) K/uL RBC 3.70 L (4.2-5.4) M/uL Hgb 11.7 L (12.0-16.0) g/dL Hct 35.1 L (37-47) % MCV 94.9 (80-100) fL MCH 31.6 (25-34) pg MCHC 33.3 (32-36) g/dL RDW Std Deviation 44.2 (36.4-46.3) fL RDW Coeff of Tiffany 12.8 (11.5-14.5) % Plt Count 233 (130-400) K/uL MPV 9.2 (7.4-10.4) fL Immature Gran % (Auto) 0.2 % Neut % (Auto) 47.0 % Lymph % (Auto) 45.0 % [place] % (Auto) 6.1 % Eos % (Auto) 1.5 % Baso % (Auto) 0.2 % Neut # (Auto) 2.78 (1.4-6.5) K/uL Lymph # (Auto) 2.66 (1.2-3.4) K/uL [place] # (Auto) 0.36 (0.11-0.59) K/uL Eos # (Auto) 0.09 (0-0.5) K/uL Baso # (Auto) 0.01 (0-0.2) K/uL Immature Gran # (Auto) 0.01 (0.00-0.02) K/uL Sodium 142 (136-145) mmol/L Potassium 3.8 (3.5-5.1) mmol/L Chloride 109 H (98-107) mmol/L Carbon Dioxide 28 (21-32) mmol/L Anion Gap 5.0 (3-11) BUN 12 (7-18) mg/dl Creatinine 0.73 (0.6-1.2) mg/dl Est Cr Clr Drug Dosing 87.7 ml/min Est GFR ( Amer) 103.0 ml/min Est GFR (Non-Af Amer) 88.9 ml/min BUN/Creatinine Ratio 16.4 (10-20) Glucose 97 (70-99) mg/dl Calcium 8.2 L (8.5-10.1) mg/dl Magnesium 2.1 (1.8-2.4) mg/dl Medications Administered Current Inpatient Medications Atropine Sulfate (Atropine Sulfate 0.1 Mg/Ml 10ml Syr) 0.5 mg IV Q1M PRN PRN Reason: PACU Use-HR<40 &/or Bradycardi Stop: 12/09/20 22:55 Ephedrine Sulfate (Ephedrine Sulfate 50 Mg/Ml Amp) 5 mg IV Q5M PRN PRN Reason: PACU Use Only-SBP<90 mmHg Stop: 12/09/20 22:55 Fentanyl Citrate (Fentanyl Citrate 100 Mcg/2 Ml Vial) 50 mcg IV Q5M PRN PRN Reason: PACU Use Only-Pain Stop: 12/09/20 22:55 Fluconazole (Fluconazole 100 Mg Tab) 200 mg PO QAM DIANE Stop: 12/18/20 08:59 Last Admin: 12/09/20 08:45 Dose: 200 mg Documented by: Heparin Sodium (Porcine) (Heparin Sod 5,000 Unit/0.5 Ml Vial) 5,000 units SQ Q12 DIANE Stop: 01/07/21 08:59 Last Admin: 12/09/20 08:45 Dose: 5,000 units Documented by: Ceftriaxone Sodium 2,000 mg/ (Dextrose) 70 mls @ 140 mls/hr IV Q24H [facility]; Protocol Stop: 12/18/20 11:59 Last Infusion: 12/09/20 12:25 Dose: Infused Documented by: Lactated Ringer's (Lr) 1,000 mls @ 125 mls/hr IV .Q8H [facility]; Protocol Stop: 01/07/21 10:44 Last Infusion: 12/09/20 15:06 Dose: 0 mls/hr Documented by: Ketorolac Tromethamine (Ketorolac Tromethamine 15 Mg/Ml Vial) 15 mg IV Q6H PRN PRN Reason: Pain Stop: 12/12/20 23:04 Last Admin: 12/09/20 07:37 Dose: 15 mg Documented by: Morphine Sulfate (Morphine Sulfate 2 Mg/Ml Carp) 2 mg IV Q4 PRN PRN Reason: Severe Pain Stop: 12/21/20 23:04 Ondansetron HCl (Ondansetron Inj 2 Mg/Ml 2 Ml Vial) 4 mg IV ONCE PRN PRN Reason: PACU Use Only-Nausea/Vomiting Stop: 12/09/20 22:55 Oxycodone HCl (Oxycodone Hcl Ir 5 Mg Tab (Immediate Release)) 5 mg PO Q6 PRN PRN Reason: Moderate Pain Stop: 12/21/20 23:04 Resident Activity Tracking Resident Involvement: Resident Care Provided Care Provided: Adult Hospital Medicine
[2020-12-09] MEDS ORDERED: OXYBUTYNIN CHLORIDE XL 5 MG TABCR PO SCH (16:45)
--- NOTE | 2020-12-09 18:30 | Billing Data ---
Date of Service December 09, 2020 Coding Level of Care Code 23101 OBS Care - Discharge
--- NOTE | 2020-12-09 18:47 | Discharge Summary ---
Date of Service December 09, 2020 Admission HPI Per Admitting Provider 60 YOF with no significant medical history and on no medications at home. Patient thinks maybe last week she may have had some discomfort in her right back, but today around 1 PM she got a sharp pain in her right side that has been waxing and waning and sharp in nature and about 6-8. This was associated with some nausea without vomiting and 2 episodes of diarrhea. She denies fevers or chills. She is comfortable at this time. The patient had a CT scan of the abdomen with 1.2mc nonobstructing stone, with pyelonephritis. Her UA did show budding yeast without any other significance. Dr. Gomez notified Dr. Su of urology with recommendations to admit. She will be covered for her UTI with Zosyn for Pseudomonal coverage as well and Fluconazole 200 mg daily. We will repeat her UA in morning. She denies any symptoms of vaginal irritation, drainage, or any discharge on underwear or pads. She is not toxic in appearing or evidence of hypoperfusion on her labs. Not immunocompromised by review. Admission Exam Per Admitting Provider PHYSICAL EXAM: General: awake, alert, no apparent distress Head: Normocephalic, atraumatic ENT: PERRL, EOMI, no pharyngeal exudate, mucous membranes moist Neuro: AAO x 3, speech clear and appropriate, strength intact bilaterally 5/5, sensation intact and equal all extremities and dermatomes, no pronator drift Chest: equal rise and fall of the chest, no accessory muscle use, no heaves or thrills, Clear to auscultation, on room air, Cardiac: Regular rate and rhythm, telemetry reviewed, skin warm dry, cap refill <3 seconds, peripheral pulses +2 no JVD, no murmur, no edema GI: NABS x 4 quadrants, soft, nontender to palpation, no rebound, guarding or tenderness : Spontaneously voiding, no pain, no CVA tenderness, Extremities: Normal inspection, no peripheral edema or erythema, calfs nontender to palpation Psych: Normal mood and affect Skin: no rash or erythema Principal Diagnosis pyelonephritis complicated by nephrolithiasis Discharge Exam General: No acute distress Cardiac: Regular rate and rhythm I did not appreciate significant murmurs rubs or gallops, normal S1, normal S2, negative pedal edema, negative calf tenderness Respiratory: Clear to auscultation bilaterally with symmetrical chest expansion I did not appreciate significant wheezes, rales, rhonchi, GI: Soft, nontender, nondistended, bowel sounds present in all 4 quadrants, negative CVA tenderness Neuro: Alert and oriented x4 Psych: Calm and cooperative with interview Discharge Data Allergies Allergy/AdvReac Type Severity Reaction Status Date / Time No Known Drug Allergies Allergy Unknown . Verified 12/07/20 18:08 Consultations 12/07/20 20:12 ED Decision to Admit Stat 12/08/20 11:16 Consult Urology Routine Procedures Performed Operation Date: 12/09/20 08:05 Actual Procedures p Cystoscopy, Right Retrograde Pyelogram, Right Ureteral Stent Placement(Right) - Sebastián Su, Ordered Studies 12/07/20 17:46 CT abd pelvis IV con only Stat 12/09/20 14:00 FL retrograde includes kub Routine Hospital Course (1) Pyelonephritis: 60-year-old female with no specific past medical history presents with 1 week of worsening back pain and associated nausea vomiting and diarrhea diagnosed with 1.2 mm nonobstructing kidney stone and associated pyelonephritis #Pyelonephritis complicated by Nephrolithiasis admission ct scan concerning for pyleonephritis. [facility] with IV [facility]osyn and monitored overnight. Zosyn was switched to ctx and uro was consulted. On 12/09 pt underwent cystoscopy and stent placement, she tolerated the procedure well and was subsequently discharged. SHe is to complete a 12 day course of cefdinar as an outpt. admission U?A demontrated vanessa and pt was provided with fluconazole while hospitalized Arias Martin MD PGY 2, FCM This chart was completed utilizing [employer] voice recognition software. Grammatical errors, random word insertions, pronoun errors, and in complete sentences are an occasional consequence of the system. Any questions or concerns about the content, text, or information contained within the body of this dictation should be addressed directly to the physician for clarification. Total Time Total Time Spent Total Time Spent (In Minutes): 32 Discharge Plan Discharge Items Patient Disposition: Home - Self-Care Reason For Visit: PYELONEPHRITIS,WITH RENAL STONE Discharge Diagnosis: Kidney stone, kidney infection (pyelonephritis) Activity: Resume your previous activity Non-emergency contact: Primary Care Provider and Urologist Call non-emergency contact if: you have any medication questions, your symptoms worsen, your pain is not controlled and your temperature is above 101 Follow-up/Referrals: Cloleen Jarrell, [Primary Care Provider] - Diet: Regular Addtl Attending Provider Instructions: kidney stone -the stent has alleviated any obstruction from your kidney - which should help with pain considerably -it is pretty normal to have a degree of flank discomfort with the stent, and sometimes that can be worse/more crampy with urination -the urology office will be calling to get you set up for the lithotripsy -- if you haven't heard from them in a few days (arbitrarily morning) call just to confirm that things haven't slipped through the cracks (they almost never do, but it's always better to have the failsafe in place) -once the stone has been broken up and passed, then they'll be able to remove the stent -pain control: ibuprofen 600mg up to every 6 hours as needed for pain (take with food as it can upset your stomach); if you have pain that the ibuprofen isn't working for, then you can use the percocet (oxycodone/acetaminophen) up to every 6 hours as well (it has more of a chance of nausea/sedation/feeling goofy or groggy) -nausea: fortunately you're doing well in that regard, but since kidney obstruction/pain/inflammation all commonly can cause nausea, we've sent a prescription for zofran (ondansetron) 4mg that you can take up to every six hours as needed for nausea kidney infection -as sometimes happens, you had a urinary tract infection at the same time as the stone - probably largely from the "stagnant pond" effect of the stone blocking drainage -fortunately this has been quite easy to treat. your cultures aren't showing a nything specific (as happens a reasonable amount of time with kidney infections) but since you got better on antibiotics with ceftriaxone, we'll send you home on a very close cousin antibiotic - cefdinir. it's 300mg twice a day - we'll treat for 12 more days to round out a full 14 days (since you came in late on the , and the antibiotic they started you on initially has a fairly short half-life, we'll start the calendar for treatment with the dosing on the 6th) -typically cefdinir is really well tolerated - but if it were to upset your stomach, then you can take it with food. if you have pain that isn't under good control with the above noted medications, if you have nausea to where you can't keep down food/fluids, or if you were to spike a fever (101F or higher) we'd want you seen right away. Pending Studies at Discharge: No Stand-Alone Forms: [facility], Opioid Pain Management, Smoking Cessation Medications and DC Order Prescriptions: New cefdinir 300 mg capsule 300 mg PO BID 12 Days Qty: 24 RF: 0 ibuprofen 600 mg tablet 600 mg PO Q6H PRN (Reason: pain) Qty: 20 RF: 0 ondansetron 4 mg tablet,disintegrating 4 mg PO Q6H PRN (Reason: nausea and vomiting) Qty: 30 RF: 0 oxycodone-acetaminophen [Percocet] 5-325 mg tablet 1 tab PO Q6H PRN (Reason: pain, severe) Qty: 7 RF: 0 No Action No Known Home Medications RF: 0 Discharge Orders: Discharge Order (Routine); Ordered 12/09/20 Ordered By: Deacon Conti/Other Patient Handouts: Having a Ureteral Stent, ED Pyelonephritis, Female (Adult) Admission Data Admit Date/Time: 12/07/20 21:25 Attending Provider: Deacon Guadalupe Admit Provider: Chika Martin Primary Care Provider: Colleen Jarrell Other Providers: Zara Lee ; Chika Martin ; Gustavo Agustin ; Keyshawn Marti ; Maurilio Awad ; Tiffany Turner ; Sebastián Su ; Linh Manzo ; Macie Brown ; Nori Sorenson ; Cullen Pope ; Tammy Pina ; Roxann Sorenson Other Interventions: Discharge Summary Assessment (RN) Last Done: 12/09/20 18:28 Resident Activity Tracking Resident Involvement: Resident Care Provided Care Provided: Adult [facility] Medicine
--- NOTE | 2020-12-09 22:39 | Electrocardiogram Report ---
Test Reason : Blood Pressure : / mmHG Vent. Rate : 060 BPM Atrial Rate : 060 BPM P-R Int : 168 ms QRS Dur : 090 ms QT Int : 424 ms P-R-T Axes : 047 023 029 degrees QTc Int : 424 ms Normal sinus rhythm Nonspecific T wave abnormality Abnormal ECG When compared with ECG of 13-AUG-2016 15:04, Nonspecific T wave abnormality now evident in Inferior leads QT has shortened Confirmed by Francesco Wilder ([id number]) on 12/09/2020 10:39:07 PM Referred By: REFERRED SELF Confirmed By:Francesco Wilder
== END 2020-12-09 19:18 | disposition home or self-care (01) ==
LOC: ED 16:15 → 3E 16:15 → SUATTDRO 21:25 → 3E 22:56